=== PATIENT | female | born 1985 | race Caucasian/White ===

== ENCOUNTER 2022-11-27 09:32 | Outpatient (REF) | payer OTHER, SELFPAY ==
[2022-11-27 14:39] LABS: CT PCR NOT DETECTED (Not Detect.); NG PCR NOT DETECTED (Not Detect.)
[2022-11-28 12:54] LABS: BV Int Neg Control Negative (Negative); BV Int Pos Control Positive (Positive)
== END 2022-11-27 09:33 | disposition home or self-care (01) ==
LOC: HO.LAB 09:32
PROVIDERS: Visit Provider Advanced Practice Midwife
DX: Z01.419 Encounter for gynecological examination (general) (routine) without abnormal findings (principal); T83.32XA Displacement of intrauterine contraceptive device, initial encounter; N89.8 Other specified noninflammatory disorders of vagina; Z20.2 Contact with and (suspected) exposure to infections with a predominantly sexual mode of transmission
CPT/HCPCS: 0353U; 87480; 87510; 87660

== ENCOUNTER 2022-11-27 10:12 | Outpatient (REF) | payer OTHER, SELFPAY | END 2022-11-27 10:13 | disposition home or self-care (01) | LOC: HO.LNP 10:12 | PROVIDERS: Visit Provider Advanced Practice Midwife | DX: Z13.89 Encounter for screening for other disorder (principal) ==

== ENCOUNTER 2022-12-05 13:01 | Outpatient (REF) | payer OTHER, SELFPAY ==
[2022-12-05 15:07] LABS: Syphilis Screen Nonreactive (Nonreactive)
[2022-12-07 06:22] LABS: HBc Num1 0.09 S/CO (0.00-0.79); HIV AB/AG Nonreactive (Nonreactive); HIV Num 1 0.06 S/CO (0.00-0.99); Hepatitis B Core Antibody Nonreactive (Nonreactive); ~Hepatitis C Antibody Nonreactive (Nonreactive)
== END 2022-12-05 13:02 | disposition home or self-care (01) ==
LOC: HO.LAB 13:01
PROVIDERS: PCP Internal Medicine; Visit Provider Advanced Practice Midwife
DX: Z11.4 Encounter for screening for human immunodeficiency virus [HIV] (principal); Z20.2 Contact with and (suspected) exposure to infections with a predominantly sexual mode of transmission
CPT/HCPCS: 36415; 86704; 86780; 86803; 87389

== ENCOUNTER 2022-12-19 10:52 | Outpatient (REF) | payer OTHER, SELFPAY ==
--- NOTE | ~2022-12-19 | US_ITS ---
EXAMINATION: US PELVIS CLINICAL INFORMATION: IUD check. COMPARISON: None. TECHNIQUE: Transabdominal and transvaginal imaging of pelvis is performed for better visualization of pelvis organs. FINDINGS: The exam is limited due to body habitus. UTERUS: The uterus is retroverted, anteflexed and measures 9.1 x 4.0 x 5.9 cm. The double wall endometrial thickness is 0.3 cm. There is an IUD well located within the endometrial canal. There is minimal fluid in the endocervical canal. The uterus is smooth in contour and has normal myometrial echogenicity. No visible fibroid. ADNEXA: Both ovaries are visualized. There is normal color flow to the adnexa. There is no ovarian torsion. There is no pelvic ascites or fluid collection. Right ovary measures 3.2 x 2.4 x 2.8 cm and volume 11.2 mL. It appears unremarkable. Left ovary visualized transabdominally only and measures 3.1 x 2.0 x 1.9 cm and volume 6.2 mL. It appears unremarkable. There is fluid seen in the cervix. There is an exophytic cyst seen in left adnexa measuring 1.4 x 1.0 x 1.4 cm likely paraovarian cyst. There is no free fluid in cul-de-sac sac. US/US pelvic and transvaginal IMPRESSION: IUD is in a good position within the endometrial canal. There is minimal fluid in the cervix. There is left paraovarian/adnexal cyst.
== END 2022-12-19 10:53 | disposition home or self-care (01) ==
LOC: HO.US 10:52
PROVIDERS: Visit Provider Advanced Practice Midwife
DX: T83.32XA Displacement of intrauterine contraceptive device, initial encounter (principal)
CPT/HCPCS: 76830; 76856

== ENCOUNTER → 2023-01-04 15:11 | Outpatient (BNVA) | payer OTHER, SELFPAY | PROVIDERS: PCP Internal Medicine; Visit Provider Advanced Practice Midwife | DX: Z13.89 Encounter for screening for other disorder (principal) ==

== ENCOUNTER 2023-11-28 09:35 | Outpatient (REF) | payer OTHER, SELFPAY ==
--- NOTE | 2023-11-28 10:59 | MHC.AU.HA3 ---
Hearing Instrument Follow-Up- Binaural Date of Visit: 11/28/23 Follow-Up Summary: Nury is here for evaluation, reports she has hearing aids from [employer] that need to be retubed but she forgot to bring them today. She plans to return with them for maintenance. She is also interested in new hearing aids-- discussed rechargeable RICs as she is interested in something smaller than her current BTEs and wants rechargeable, Bluetooth, and a fun color if possible. Nury plans to contact [facility] to see if she's eligible. Recommendations: Recommendations: Return with hearing aids for maintenance. Diagnosis Code(s): Primary Diagnosis: H90.3 Bilateral Sensorineural Hearing Loss Signature: Provider: Alma Rosa Christian, CCC-A
== END 2023-11-28 09:36 | disposition home or self-care (01) ==
LOC: HO.SH 09:35
PROVIDERS: Visit Provider Nurse Practitioner Family
DX: Z01.118 Encounter for examination of ears and hearing with other abnormal findings (principal); H90.3 Sensorineural hearing loss, bilateral
CPT/HCPCS: 92557

== ENCOUNTER 2023-12-04 08:15 | Outpatient (AMB) | payer OTHER, SELFPAY ==
--- NOTE | 2023-12-04 08:16 | A.OFFVIS_ITS ---
Intake Vital Signs 12/04/23 08:17 Height 5 ft 3 in Weight 323 lb BMI 57.2 BP 136/80 Intake Visit Reasons: Annual Group Work Program Aide: Group Work Program Aide Present (Samantha) Allergies amoxicillin [AMOXICILLIN] Allergy (Unknown, Verified 12/04/23 08:17) NAUSEA & VOMITING HPI HPI Comments History of Present Illness Details She is a premenopausal woman presenting for annual examination. Doing well with no concerns. She tries to eat healthy, seeing a safety and skill based pay manager, and stays active with exercise. Doing well with the Mirena. Currently is not sexually active. She denies vaginal itching and irritation. STI screening offered; she accepts. Denies family history of ovarian or colon cancer. Last pap smear 2018, negative. [facility] Medical History (Updated 12/04/23 @ 08:41 by Brandi Simpson CNM) Asthma Vitamin D deficiency Joesph's disease Hypothyroid Surgical History Hx of cholecystectomy History of ankle surgery Family History Maternal Grandmother History of breast cancer Paternal Grandfather Brain cancer Social History Alcohol intake: current Alcohol intake frequency: a few times a month Patient Tobacco Use Status: Never used Tobacco Sexual orientation: Straight/Heterosexual Gender identity: Female Female Reproductive History Menstrual control method: progestin IUCD (Mirena 07/01) Total pregnancies: 0 Date of last pap smear: 12/10/18 (neg) Review of Systems Const All systems reviewed & are unremarkable except as noted in HPI and below Reports as per HPI Eyes Reports no additional complaints ENT Reports no additional complaints Card Reports no additional complaints Resp Reports no additional complaints GI Reports as per HPI and Reports no additional complaints Reports as per HPI Musc Reports no additional complaints Skin/Breast Reports as per HPI Neuro Reports no additional complaints Psych Reports no additional complaints Endo Reports no additional complaints Shivam/Lymph Reports no additional complaints Aller/Immun Reports no additional complaints Physical Exam Vital Signs: Last Vital Signs BP 136/80 12/04/23 08:17 BMI result Body Mass Index 57.2 Const General: cooperative, healthy appearing, no acute distress, well developed and alert Orientation/consciousness: patient oriented x3 HEENT Head: Yes normal to inspection Eyes General: appearance normal, both eyes and all related structures Neck Neck: Yes normal visual inspection Thyroid: Thyroid normal Chest Chest palpation & inspection: normal inspection of the chest and other (no puckering, dimpling, peau de orange, retraction, discharge, masses) Breast/axilla inspection: normal inspection of the breasts Breast/axilla palpation: normal palpation of the breasts Resp Effort & Inspection: normal respiratory effort GI Inspection: Yes normal to inspection and Yes obesity Palpation (GI): Soft to palpation Rectal Exam - Female: deferred Other: Pelvic organs not outlined well due to body habitus. General: Yes bladder normal to palpation External Female Exam: normal external appearance and normal appearance of the urethra Speculum Exam - Vagina: normal appearance of the vagina, normal palpation and normal vaginal discharge Speculum Exam - Cervix: normal appearance of the cervix, normal palpation and Other cervical findings present (IUD strings not found) Bimanual exam- vagina & uterus: normal bimanual exam, normal palpation, uterine size normal, bladder normal to palpation, normal palpation and non-tender Bimanual Exam- Adnexa, other: no masses Skin General skin exam: no rashes or lesions noted Rashes: no rashes Neuro General: patient oriented x3 Cognition (Neuro): normal cognition Extrem General: Yes normal to inspection Psych Attitude: cooperative Thought process: Normal thought process present Assessment & Plan Assessment & Plan (1) Encounter for well woman exam with routine gynecological exam: Code(s): Z01.419 - Encounter for gynecological examination (general) (routine) without abnormal findings (2) IUD strings lost: Code(s): T83.32XA - Displacement of intrauterine contraceptive device, initial encounter Plan Discussed: Current recommendations for pap smears per ASCCP guidelines. Breast awareness and periodic breast exams. Maintain a healthy lifestyle including a well balanced diet and routine exercise. Use condoms for STI prevention. Plan pelvic ultrasound for IUD surveillance-positioned check. May follow-up with a tele visit or phone call if all is confirmed in normal position, otherwise an in-person exam will be required. Mammogram after her 39th. All of her questions and concerns were addressed to the best of my ability. RTO in one year for annual delivery clerk examination. This note is constructed using voice recognition software. While every effort has been made to ensure accuracy, test eng errors may have been included. Orders: Orders MM tomosynthesis screening BI Today Z12.31 - Encounter for screening mammogram for malignant neoplasm of breast Syphilis Screen Today Z20.2 - Contact with and (suspected) exposure to infections with a predominantly sexual mode of transmission HIV Ab/Ag Today Z20.2 - Contact with and (suspected) exposure to infections with a predominantly sexual mode of transmission Hepatitis C Antibody Today Z20.2 - Contact with and (suspected) exposure to infections with a predominantly sexual mode of transmission Hepatitis B Core Antibody Today Z20.2 - Contact with and (suspected) exposure to infections with a predominantly sexual mode of transmission US pelvic and transvaginal Today T83.32XA - Displacement of intrauterine contraceptive device, initial encounter Coding Level of Care Code Est Pt Prev Care 18-39y(79349) Diagnoses Encounter for well woman exam with routine gynecological exam Z01.419 IUD strings lost T83.32XA
[2023-12-04 08:17] VITALS: BP 136/80; BMI 57.2
== END 2023-12-04 09:31 | disposition home or self-care (01) ==
LOC: HO.HWS 08:15
PROVIDERS: PCP Nurse Practitioner Family; Visit Provider Advanced Practice Midwife
DX: Z01.419 Encounter for gynecological examination (general) (routine) without abnormal findings (principal); T83.32XA Displacement of intrauterine contraceptive device, initial encounter
CPT/HCPCS: 99395

== ENCOUNTER 2023-12-04 08:15 | Outpatient (REF) | payer OTHER, SELFPAY ==
[2023-12-04 10:56] LABS: HBc Num1 0.08 S/CO (0.00-0.79); HIV AB/AG Nonreactive (Nonreactive); HIV Num 1 0.05 S/CO (0.00-0.99); Hepatitis B Core Antibody Nonreactive (Nonreactive); ~HepC Num1 0.05 S/CO (0.00-0.79); ~Hepatitis C Antibody Nonreactive (Nonreactive)
[2023-12-04 10:57] LABS: Syphilis Screen Nonreactive (Nonreactive)
[2023-12-04 12:21] LABS: CT PCR NOT DETECTED (Not Detect.); NG PCR NOT DETECTED (Not Detect.)
[2023-12-05 13:42] LABS: BV Int Neg Control Negative (Negative); BV Int Pos Control Positive (Positive)
== END 2023-12-04 08:16 | disposition home or self-care (01) ==
LOC: HO.LAB 08:15
PROVIDERS: PCP Nurse Practitioner Family; Visit Provider Advanced Practice Midwife
DX: Z01.419 Encounter for gynecological examination (general) (routine) without abnormal findings (principal); Z11.4 Encounter for screening for human immunodeficiency virus [HIV]; T83.32XA Displacement of intrauterine contraceptive device, initial encounter; Z20.2 Contact with and (suspected) exposure to infections with a predominantly sexual mode of transmission; N89.8 Other specified noninflammatory disorders of vagina
CPT/HCPCS: 0353U; 86704; 86780; 86803; 87389; 87480; 87510; 87660

== ENCOUNTER 2023-12-04 08:53 | Outpatient (REF) | payer OTHER, SELFPAY ==
[2023-12-10 05:04] LABS: HPV 16 RNA NOT DETECTED (NOT DETECTED); HPV mRNA E6/E7 rflx Detected (Not Detected)
== END 2023-12-04 08:54 | disposition home or self-care (01) ==
LOC: HO.LNP 08:53
PROVIDERS: Visit Provider Advanced Practice Midwife
DX: Z01.419 Encounter for gynecological examination (general) (routine) without abnormal findings (principal); Z11.51 Encounter for screening for human papillomavirus (HPV)
CPT/HCPCS: 87624; 87625; 88142

== ENCOUNTER 2023-12-23 16:06 | Outpatient (REF) | payer OTHER, SELFPAY ==
--- NOTE | ~2023-12-23 | US_ITS ---
EXAMINATION: US PELVIS CLINICAL INFORMATION: Unable to palpate IUD string. Check IUD placement. Unknown last menstrual period due to IUD. Patient denies pelvic pain. COMPARISON: 12/19/2022 pelvic ultrasound. TECHNIQUE: Transabdominal and transvaginal ultrasound images were obtained of the pelvis. Limited visualization due to bowel gas and body habitus. FINDINGS: The uterus measures 8.4 x 3.8 x 4.9 cm. No discrete fibroids. IUD located within the endometrial cavity, though visualization to assess for positioning is limited due to body habitus and bowel gas. Limited visualization due to bowel gas and body habitus. Bilateral ovaries seen only on limited transabdominal ultrasound images and are grossly unremarkable. Right ovary measures 3.0 x 3.1 x 3.0 cm, volume 14.6 mL. Left ovary measures 2.5 x 3.6 x 2.9 cm, volume 13.7 mL. No significant free fluid. US/US pelvic and transvaginal IMPRESSION: 1. IUD located within the endometrial cavity, though visualization to assess for positioning is substantially limited due to body habitus and bowel gas. 2. No discrete fibroids. 3. Bilateral ovaries seen only on limited transabdominal ultrasound images and are grossly unremarkable. Previously identified left paraovarian/adnexal 1.4 cm cyst is not visualized today, although visualization is substantially limited due to bowel gas and body habitus.
== END 2023-12-23 16:07 | disposition home or self-care (01) ==
LOC: HO.US 16:06
PROVIDERS: PCP Nurse Practitioner Family; Visit Provider Advanced Practice Midwife
DX: T83.32XA Displacement of intrauterine contraceptive device, initial encounter (principal)
CPT/HCPCS: 76830; 76856

== ENCOUNTER 2024-01-07 12:46 | Outpatient (AMB) | payer OTHER, SELFPAY ==
--- NOTE | 2024-01-07 12:47 | A.OFFVIS_ITS ---
Intake Intake Visit Reasons: TV Ultrasound Results Intake Note: cell # [phone] Client Care Representative: Client Care Representative Present Allergies amoxicillin [AMOXICILLIN] Allergy (Unknown, Verified 01/07/24 12:47) NAUSEA & VOMITING Is last menstrual period known: Yes HPI HPI Comments History of Present Illness Details [facility] visit 12:53-12:56. Phone call due to Covid 19 Pandemic. I spent minutes speaking with the patient on the phone plus an additional 5 minutes reviewing the chart and 5 minutes updating the medical record for a total of 13minutes. Patient presents via phone to discuss: IUD results due to previous visit with missing IUD strings. She denies any pelvic pain or other concerns. [facility] Medical History (Updated 12/04/23 @ 08:41 by Brandi Simpson CNM) Asthma Vitamin D deficiency Joesph's disease Hypothyroid Surgical History Hx of cholecystectomy History of ankle surgery Family History Maternal Grandmother History of breast cancer Paternal Grandfather Brain cancer Social History Alcohol intake: current Alcohol intake frequency: a few times a month Patient Tobacco Use Status: Never used Tobacco Sexual orientation: Straight/Heterosexual Gender identity: Female Female Reproductive History Menstrual control method: progestin IUCD (Missing IUD strings, ultrasound confirmation IUD in proper position 12/2023) Review of Systems Const All systems reviewed & are unremarkable except as noted in HPI and below Endo Reports no additional complaints Physical Exam Const General: cooperative, healthy appearing and no acute distress Psych Appearance: well kempt Attitude: cooperative Thought process: Normal thought process present Results Reviewed Results Reviewed: [address] [address] Ultrasound Report Signed Patient: Nury Olivera MR#: [id number] : 1985 Acct:[id number] Age/Sex: 38 / F ADM Date: 12/23/23 Loc: HO.US Attending Dr: Brandi Simpson CNM Ordering Physician: Brandi Simpson CNM Date of Service: 12/23/23 Procedure(s): US pelvic and transvaginal Accession Number(s): [id number] cc: Traci Menendez DIRECTOR OF REVENUE; Brandi Simpson CNM~ EXAMINATION: US PELVIS CLINICAL INFORMATION: Unable to palpate IUD string. Check IUD placement. Unknown last menstrual period due to IUD. Patient denies pelvic pain. COMPARISON: 12/19/2022 pelvic ultrasound. TECHNIQUE: Transabdominal and transvaginal ultrasound images were obtained of the pelvis. Limited visualization due to bowel gas and body habitus. FINDINGS: The uterus measures 8.4 x 3.8 x 4.9 cm. No discrete fibroids. IUD located within the endometrial cavity, though visualization to assess for positioning is limited due to body habitus and bowel gas. Limited visualization due to bowel gas and body habitus. Bilateral ovaries seen only on limited transabdominal ultrasound images and are grossly unremarkable. Right ovary measures 3.0 x 3.1 x 3.0 cm, volume 14.6 mL. Left ovary measures 2.5 x 3.6 x 2.9 cm, volume 13.7 mL. No significant free fluid. US/US pelvic and transvaginal IMPRESSION: 1. IUD located within the endometrial cavity, though visualization to assess for positioning is substantially limited due to body habitus and bowel gas. 2. No discrete fibroids. 3. Bilateral ovaries seen only on limited transabdominal ultrasound images and are grossly unremarkable. Previously identified left paraovarian/adnexal 1.4 cm cyst is not visualized today, although visualization is substantially limited due to bowel gas and body habitus. Dictated By: Tamera Funk MD Signed By: <Electronically signed by Tamera Funk MD in OV> 12/24/23 0710 DD/ 1700 TD/TT: Radiology Manager: Assessment & Plan Assessment & Plan (1) IUD surveillance: Code(s): Z30.431 - Encounter for routine checking of intrauterine contraceptive device Plan Discussed: Findings of IUD presence in the endometrial canal previous cyst resolve. All of her questions and concerns were addressed to the best of my ability and shared decision making. She is agreeable to the plan of care. Return to the office for annual yearly, or if there is any pelvic pain unscheduled bleeding or other electric sign wirer concerns. This note is constructed using voice recognition software. While every effort has been made to ensure accuracy, inspector technician errors may have been included. Telehealth Telehealth Location of provider rendering services: practice address Location of patient: address on file Patient Identification confirmed using: Name, : Yes Telehealth method: video Patient verbally consented to treatment: Yes Patient verbally consented to billing insurance company: Yes Patient informed of any privacy concerns related to visit: Yes Coding Level of Care Code Tele Est Pt Level 2 (16445) Diagnoses IUD surveillance Z30.431
== END 2024-01-07 13:23 | disposition home or self-care (01) ==
LOC: HO.HWS 12:47
PROVIDERS: PCP Nurse Practitioner Family; Visit Provider Advanced Practice Midwife
DX: Z30.431 Encounter for routine checking of intrauterine contraceptive device (principal)
CPT/HCPCS: 99212

== ENCOUNTER → 2024-01-07 12:46 | Outpatient (BNVA) | payer OTHER, SELFPAY | PROVIDERS: PCP Nurse Practitioner Family; Visit Provider Advanced Practice Midwife ==

== ENCOUNTER 2024-02-27 08:56 | Outpatient (REF) | payer OTHER, SELFPAY ==
--- NOTE | ~2024-02-27 | MM_ITS ---
EXAMINATION: MM SCREENING DIGITAL BREAST TOMOSYNTHESIS, BILATERAL CLINICAL INFORMATION: Screening. Asymptomatic. COMPARISON: Mammography: This is a baseline study. TECHNIQUE: Digital breast tomosynthesis is performed in both the craniocaudal and mediolateral oblique views along with computer-aided detection (CAD). Synthesized 2D images are generated from the tomosynthesis. FINDINGS: The breasts are almost entirely fatty (ACR BI-RADS breast composition Category a). There are no significant masses, abnormal calcifications, or other abnormalities. MM/MM tomosynthesis screening BI IMPRESSION: No mammographic evidence of malignancy. ASSESSMENT: BI-RADS BI-RADS 1 - Negative RECOMMENDATION: Routine annual mammography screening. 1 year F/U This examination should not preclude the clinical evaluation of a suspicious palpable abnormality. This patient's information was entered into a reminder system with a target due date for their next mammogram.
== END 2024-02-27 08:57 | disposition home or self-care (01) ==
LOC: HO.MAMMO 08:56
PROVIDERS: PCP Nurse Practitioner Family; Visit Provider Advanced Practice Midwife
DX: Z12.31 Encounter for screening mammogram for malignant neoplasm of breast (principal)
CPT/HCPCS: 77063; 77067

== ENCOUNTER → 2024-02-27 09:15 | Outpatient (BNV) | payer OTHER, SELFPAY | PROVIDERS: PCP Nurse Practitioner Family; Visit Provider Radiology Diagnostic Radiology | DX: Z12.31 Encounter for screening mammogram for malignant neoplasm of breast (principal) | CPT/HCPCS: 77063; 77067 ==

== ENCOUNTER 2024-06-02 21:07 | Emergency (ER) | payer OTHER, SELFPAY ==
[2024-06-02 21:12] VITALS: BP 154/95; PULSE 75; RESP 18; TEMP 36.7; O2SAT 99; BMI 56.7
[2024-06-02 21:37] LABS: IDNOW Serial# 08D9AD1C; Strep A Nucleic Acid Negative (Negative)
[2024-06-02 22:13] LABS: Influenza A PCR NEGATIVE (Negative); Influenza B PCR NEGATIVE (Negative); Resp Syncy Virus RNA Qual PCR NEGATIVE (Negative); SARS COV2 PCR INHOUSE NEGATIVE (Negative)
--- NOTE | 2024-06-02 23:19 | ED_ITS ---
HPI - URI/Sore Throat General Chief Complaint: Upper Respiratory Symptoms Stated Complaint: ?Dental infection Time Seen by Provider: 06/02/24 22:57 Source: patient Mode of arrival: ambulatory Limitations: no limitations History of Present Illness ED Provider: Dr. Felicita Fierro HPI Narrative: Patient comes to the emergency room complaining of sinus pressure, headache, nasal congestion, right ear pain. Patient denies fever chills. Patient denies any recent swimming. No dental pain Related Data Home Medications ?Medication ?Instructions ?Recorded ?Confirmed albuterol sulfate 90 mcg/actuation 2 puff inhalation Q4H PRN dyspnea 11/27/22 aerosol inhaler cholecalciferol (vitamin D3) 25 25 mcg PO DAILY 11/27/22 mcg (1,000 unit) capsule citalopram 10 mg tablet 10 mg PO DAILY 11/27/22 levonorgestrel 21 mcg/24 hr (up to intrauterine 11/27/22 8 years) 52 mg intrauterine device (Mirena) levothyroxine 175 mcg tablet 175 mcg PO QAM 11/27/22 lorazepam 0.5 mg tablet 0.5 mg PO PRN anxiety 11/27/22 metformin 500 mg tablet 500 mg PO BID 11/27/22 selenium 200 mcg tablet 200 mcg PO DAILY 11/27/22 methylphenidate HCl 27 mg 27 mg PO QAM 12/04/23 tablet,extended release 24 hr semaglutide 1 mg/dose (4 mg/3 mL) mg subcut 12/04/23 subcutaneous pen injector (Ozempic) Previous Rx's ?Medication ?Instructions ?Recorded cefuroxime axetil 250 mg tablet 250 mg PO BID #20 tabs 06/02/24 ibuprofen 600 mg tablet 600 mg PO Q8H PRN fever or pain 06/02/24 #20 tabs Allergies Allergy/AdvReac Type Severity Reaction Status Date / Time amoxicillin [AMOXICILLIN] Allergy Unknown NAUSEA & Verified 06/02/24 21:13 VOMITING Review of Systems Review of Systems: Constitutional : No Weight loss, No Fever, No Chills, No Night Sweats, No Fatigue, No Malaise ENT/Mouth : Complaining of sinus pressure, nasal congestion, discomfort with swallowing, bilateral ear pain board worse under Eyes: No Eye Pain, No Swelling, No Redness, No Foreign Body, No Discharge, No Vision Changes Cardiovascular : No Chest Pain, No SOB, No Dyspnea on Exertion, No Orthopnea, No Edema, No Palpitations Respiratory : No Cough, No Sputum, No Wheezing, No Smoke Exposure, No Dyspnea Gastrointestinal : No Nausea, No Vomiting, No Diarrhea, No Constipation, No abdominal Pain, No Hematochezia, No Melena Genitourinary : no irregular bleeding, No Dysuria, No Urinary Frequency, No Hematuria, No Urinary Incontinence, No Urgency, No Flank Pain, No Urinary Flow Changes, No Hesitancy Musculoskeletal : No joint pain, No Myalgias, No Joint Swelling Skin : No Skin Lesions, No rash Neuro : No Weakness, No Numbness, No Paresthesias, No Loss of Consciousness, No Dizziness, No Headache Psych : No Anxiety/Panic, No Depression, No SI/HI/AH/VH, No Social Issues, Heme/Lymph: No Bruising, No Bleeding,No Lymphadenopathy Endocrine : No Polyuria, No Polydipsia, No Temperature Intolerance PMFSH Past Medical History Medical History Asthma Vitamin D deficiency Joesph's disease Hypothyroid Surgical History Hx of cholecystectomy History of ankle surgery Family History Family History Maternal Grandmother History of breast cancer Paternal Grandfather Brain cancer Social History Social History Alcohol intake: current Alcohol intake frequency: a few times a month Patient Tobacco Use Status: Never used Tobacco Smoked in Last 30 Days: No Advance Directives: No Advance Directives Information Provided: No Do you have a plan to hurt others: No Plan Patient : No Sexual orientation: Straight/Heterosexual Gender identity: Female Physical Exam Vital Signs: Vital Signs: Last Vital Signs Temp 98.1 F 06/02/24 21:12 Pulse 75 06/02/24 21:12 Resp 18 06/02/24 21:12 BP 154/95 H 06/02/24 21:12 Pulse Ox 99 06/02/24 21:12 O2 Del Method Room Air 06/02/24 21:12 BMI result Body Mass Index 56.7 Const: Other: Appearance: Alert. Oriented X3. No acute distress. Eyes: Pupils equal, round and reactive to light. ENT: Pharynx normal. Right tympanic membrane erythematous, ear canal mildly swollen Neck: Normal inspection. Neck supple. No lymph nodes noted. No crepitus CVS: Normal heart rate and rhythm. Pulses normal. Normal S1 and S2 Respiratory: No respiratory distress. Breath sounds normal. No Wheezing. No rales Abdomen: Soft and nontender. No rigidity. No distention. Skin: Skin warm and dry. Normal skin color. Normal skin turgor. Extremities: No lower extremity edema. No Lacerations. No Rash Neuro: Oriented X 3. No motor deficit. No sensory deficit. Moving all extremities. No slurred speech. CN 2 through 12 grossly intact Psych: calm, cooperative, normal affect Medical Decision Making Medical Decision Making [facility] Narrative: My interpretation of labs: Negative for influenza, RSV and strep -however, patient does have otitis media Differential Diagnosis Differential Diagnoses: The differential diagnosis associated with the presentation includes (Viral URI, strep, COVID, otitis) Lab Data [facility] Lab Attestation statement: I reviewed the patient's lab results. Labs: Lab Results 06/02/24 Range/Units 21:22 Influenza Type A (PCR) NEGATIVE (Negative) Influenza Type B (PCR) NEGATIVE (Negative) RSV RNA Qual (PCR) NEGATIVE (Negative) SARS-CoV-2 RNA (RT-PCR) NEGATIVE (Negative) S. pyogenes GrpA SARAH Negative (Negative) Discharge Plan Discharge Clinical Impression: Otitis media Patient Disposition: Home, Self-Care Instructions: Ear Infection (ED) Additional Instructions: Please follow-up with your primary care physician tomorrow. If you have any worsening or new symptoms, please return to the emergency room or call 911 Prescriptions: New cefuroxime axetil 250 mg tablet 250 mg PO BID Qty: 20 0RF ibuprofen 600 mg tablet 600 mg PO Q8H PRN (Reason: fever or pain) Qty: 20 0RF No Action citalopram 10 mg tablet 10 mg PO DAILY levothyroxine 175 mcg tablet 175 mcg PO QAM albuterol sulfate 90 mcg/actuation HFA aerosol inhaler 2 puff inhalation Q4H PRN (Reason: dyspnea) metformin 500 mg tablet 500 mg PO BID lorazepam 0.5 mg tablet 0.5 mg PO PRN (Reason: anxiety) selenium 200 mcg tablet 200 mcg PO DAILY cholecalciferol (vitamin D3) 25 mcg (1,000 unit) capsule 25 mcg PO DAILY Mirena 20 mcg/24 hours (8 yrs) 52 mg intrauterine device intrauterine methylphenidate HCl 27 mg tablet extended release 24hr 27 mg PO QAM Ozempic 1 mg/dose (4 mg/3 mL) pen injector subcut Print Language: Icelandic
[2024-06-02 23:41] VITALS: BP 165/112; PULSE 71; RESP 20; TEMP 36.8; O2SAT 96
[2024-06-02 23:59] VITALS: BP 165/115; PULSE 71; RESP 20; TEMP 36.8; O2SAT 96
== END 2024-06-03 00:01 | disposition home or self-care (01) ==
PROVIDERS: Emergency Provider Emergency Medicine; PCP Nurse Practitioner Family
DX: H66.91 Otitis media, unspecified, right ear (principal); H92.01 Otalgia, right ear; Z03.818 Encounter for observation for suspected exposure to other biological agents ruled out; J45.909 Unspecified asthma, uncomplicated
CPT/HCPCS: 0241U; 87651; 99283; 99284

== ENCOUNTER 2024-06-26 12:26 | Outpatient (REF) | payer OTHER, SELFPAY | END 2024-06-26 12:27 | disposition home or self-care (01) | LOC: HO.SH 12:26 | PROVIDERS: Visit Provider Nurse Practitioner Family | DX: Z01.118 Encounter for examination of ears and hearing with other abnormal findings (principal); H90.3 Sensorineural hearing loss, bilateral | CPT/HCPCS: 92552; 92556; 92567 ==

== ENCOUNTER 2024-06-30 13:02 | Outpatient (REF) | payer SELFPAY | END 2024-06-30 13:03 | disposition home or self-care (01) | LOC: HO.HAP 13:02 | PROVIDERS: Visit Provider Nurse Practitioner Family | DX: Z46.1 Encounter for fitting and adjustment of hearing aid (principal); H90.3 Sensorineural hearing loss, bilateral | CPT/HCPCS: 92593 ==

== ENCOUNTER 2024-11-17 13:21 | Outpatient (REF) | payer OTHER, SELFPAY ==
[2024-11-18 03:39] LABS: CT PCR NOT DETECTED (Not Detect.); NG PCR NOT DETECTED (Not Detect.)
[2024-11-18 11:31] LABS: Bacterial Vaginosis PCR NEGATIVE (Negative); Candida Group PCR DETECTED (Not Detect); Candida glab krusei PCR NOT DETECTED (Not Detect); Trichomonas vaginalis PCR NOT DETECTED (Not Detect)
== END 2024-11-17 13:22 | disposition home or self-care (01) ==
LOC: HO.LNP 13:21
PROVIDERS: PCP Nurse Practitioner Family; Visit Provider Advanced Practice Midwife
DX: N90.89 Other specified noninflammatory disorders of vulva and perineum (principal)
CPT/HCPCS: 81515; 87491; 87591

== ENCOUNTER 2024-11-17 13:21 | Outpatient (AMB) | payer OTHER, SELFPAY ==
--- NOTE | 2024-11-17 13:24 | MHC.OFFVIS ---
Intake Visit Reasons: vag irritation Allergies amoxicillin [AMOXICILLIN] Allergy (Unknown, Verified 11/17/24 13:25) NAUSEA & VOMITING HPI Comments Details: Patient is here today with concerns that she sought external irritation and itching on and off for some time. Had a prescription from her primary care for external dryness which worked well in the past. Currently not sexually active, desires to have STD screening. She denies any pelvic pain or urinary symptoms. [facility] Medical History Asthma Vitamin D deficiency Joesph's disease Hypothyroid Surgical History Hx of cholecystectomy History of ankle surgery Family History Maternal Grandmother History of breast cancer Paternal Grandfather Brain cancer Social History Alcohol intake: current Alcohol intake frequency: a few times a month Patient Tobacco Use Status: Never used Tobacco Sexual orientation: Straight/Heterosexual Gender identity: Female Review of Systems Const All systems reviewed & are unremarkable except as noted in HPI and below Physical Exam Const General: cooperative, healthy appearing and no acute distress Orientation/consciousness: patient oriented x3 GI Inspection: Yes normal to inspection and Yes obesity Palpation (GI): Soft to palpation and Other GI palpation findings present (Nontender) Rectal Exam - Female: visual inspection normal Other: External: Erythema slight edema of the labia. Limited exam due to patient tensing and inability to insert speculum deeply due to vaginal anatomy w/ deep pelvis General: Yes bladder normal to palpation External Female Exam: normal appearance of the urethra Speculum Exam - Vagina: normal appearance of the vagina, normal palpation and abnormal vaginal discharge (White and clumpy) Speculum Exam - Cervix: normal appearance of the cervix and normal palpation Bimanual exam- vagina & uterus: normal bimanual exam, normal palpation, uterine size normal, bladder normal to palpation, normal palpation, uterine shape normal and non-tender Bimanual Exam- Adnexa, other: normal adnexae Neuro General: patient oriented x3 Assessment & Plan Assessment & Plan (1) Vulvar irritation: Code(s): N90.89 - Other specified noninflammatory disorders of vulva and perineum Plan Discussed: Treat for topical discomfort until BV panel is back for confirmation, STD screening culture completed. We will consider a topical insert if needed due to the contraindications of Diflucan use with her Citalopram medication. Annual exam as scheduled the end of the month. The patient expressed understanding and agreement with the plan of care. All of her questions and concerns were addressed to the best of my ability. This note is constructed using voice recognition software. While every effort has been made to ensure accuracy, innersole fitter errors may have been included. Medications: New clotrimazole-betamethasone 1-0.05 % 1 appl topical BID 7 days 45 grams 0RF itching Coding Level of Care Code Est Pt Level 3 (56769) Diagnoses Vulvar irritation N90.89
== END 2024-11-17 14:20 | disposition home or self-care (01) ==
PROVIDERS: PCP Nurse Practitioner Family; Visit Provider Advanced Practice Midwife
DX: N90.89 Other specified noninflammatory disorders of vulva and perineum (principal)
CPT/HCPCS: 99213

== ENCOUNTER 2024-12-08 08:21 | Outpatient (REF) | payer OTHER, SELFPAY ==
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
--- OUTSIDE RECORDS SUMMARY | 2024-12-08 09:30 | XMS_ITS | Encounter Summary ---
Author Organization [facility] Address [address] [place] [address] Care Team Providers Care Artificial Inseminator Name Role Phone Shiela Martinez MD Primary Care Provider Unava ilable Tracy Sutton DO Primary Care Pro vider Unavailable Cayetano Camacho DO Primary Care Provider Tanesha Traci Urrutia DNP Primary Care Provider Yakelin presley Encounter Details Date Type Department Care Team Description 10/23/2016 Release of Information Medical Records [address] [place] [id number] Abstract, Provider Social History Tobacco Use Types Packs/Day Years Used Date Smoking Tobacco: Never Smokeless Tobacco: Never Alcohol Use Standard Drinks/Week Comments Yes 0 (1 standard drink = 0.6 oz pure alcohol) socially, rare, 1-2 drinks on occasion Sex Assigned at Date Recorded Not on file Job Start Date Occupation Industry Not on file Not on file Not on file documented as of this encounter Plan of Treatment Not on file documented as of this encounter Visit Diagnoses Not on filedocumented in this encounter Care Teams Artificial Inseminator Relationship Specialty Start Date End Date Shiela Martinez MD PCP - General 02/26/11 12/14/18 Tracy Sutton DO PCP - General Internal Medicine 12/15/18 07/06/21 Cayetano Camacho DO PCP - General Internal Medicine 07/07/21 2 Traci Menendez, DNP PCP - General Nurse Practioner Adult Health 12/05/21 documented as of this encounter
--- OUTSIDE RECORDS SUMMARY | 2024-12-08 09:30 | XMS_ITS | Encounter Summary ---
Author Organization [facility] Address [address] [place] [address] Care Team Providers Care Medical Reviewer Name Role Phone Tracy Sutton DO Primary Care Pro vider Unavailable Cayetano Camacho DO Primary Care Provider Traci Lin DNP Primary Care Provider Yakelin presley Encounter Details Date Type Department Care Team Description 08/05/2020 Orders Only Adult Medicine [address] [address] Tracy Sutton DO Acquired hypothyroidism (Primary Dx) Social History Tobacco Use Types Packs/Day Years Used Date Smoking Tobacco: Never Smokeless Tobacco: Never Alcohol Use Standard Drinks/Week Comments Yes 0 (1 standard drink = 0.6 oz pure alcohol) socially, rare, 1-2 drinks on occasion Sex Assigned at Date Recorded Not on file Job Start Date Occupation Industry Not on file Not on file Not on file COVID-19 Exposure Response Date Recorded In the last month, have you been in contact with someone who was confirmed or suspected to have Coronavirus / COVID-19? No / Unsure 08/04/2020 4:52 PM EDT documented as of this encounter Plan of Treatment Scheduled Orders Name Type Priority Associated Diagnoses Orde r Schedule TSH Lab Routine Acquired hypothyroidism Expected: 08/05/2020, Expires: 08/05/2021 documented as of this encounter Visit Diagnoses Diagnosis Acquired hypothyroidism- Primary Unspecified hypothyroidism documented in this encounter Care Teams Medical Reviewer Relationship Specialty Start Date End Date Tracy Sutton, PCP - General Internal Medicine 12/15/18 07/06/21 Cayetano Camacho DO PCP - General Internal Medicine 07/07/21 2 Traci Menendez, JOANIE PCP - General Nurse Practioner [facility] 12/05/21 documented as of this encounter
--- OUTSIDE RECORDS SUMMARY | 2024-12-08 09:30 | XMS_ITS | Encounter Summary ---
Author Organization [facility] Address [address] [place] [address] Care Team Providers Care Log Turner Name Role Phone Tracy Sutton DO Primary Care Pro vider Unavailable Cayetano Camacho DO Primary Care Provider Traci Lin DNP Primary Care Provider Yakelin presley Encounter Details Date Type Department Care Team Description 03/06/2021 Pediatric Occupational Therapist Report Medical Records [address] [place] [id number] Thu Renteria PA-C Social History Tobacco Use Types Packs/Day Years [...] on filedocumented in this encounter Care Teams Log Turner Relationship Specialty Start Date End Date Tracy Sutton DO PCP - General Internal Medicine 12/15/18 07/06/21 Cayetano Camacho DO PCP - General Internal Medicine 07/07/21 2 Traci Menendez DNP PCP - General Nurse Practioner Adult Health 12/05/21 documented as of this encounter
--- OUTSIDE RECORDS SUMMARY | 2024-12-08 09:30 | XMS_ITS | Clinical Summary ---
Author Organization [facility] Address [address] [place] [address] Care Team Providers Care Barrel Bander Name Role Phone Traci Menendez DNP Primary Care Provider Yakelin presley Allergies Active Allergy Reactions Severity Noted Date Comments Amoxicillin Trihydrate Nausea and Vomiting 01/09 Medications Medication Sig Dispensed Refills Start Date End Date Status [facility] VITAMIN D3 1000 UNITS Cap TAKE 1 CAP BY MOUTH DAILY. 30 Cap 5 11/07/2016 Active ibuprofen (ADVIL,MOTRIN) 600 MG tablet Take 1 Tab by mouth every 8 hours as needed for Pain. 60 Tab 0 09/24/2017 Active fexofenadine 180 MG tablet Take 1 Tab by mouth daily. 30 Tab 2 03/03/2019 Active PROAIR HFA 108 (90 Base) MCG/ACT Aero Soln Inhale 2 Puffs into the lungs every 4 hours as needed for Cough or Wheezing. 1 Inhaler 1 09/02/2019 Active fluticasone (FLONASE) 50 MCG/ACT nasal spray 2 Sprays by Nasal route daily for 30 days. 1 Bottle 1 09/29/2020 Active levothyroxine 100 MCG tablet Take 1 tab twice a week on Saturday and Saturday 24 tablet 0 2021 Active lorazepam (Ativan) 0.5 MG tablet 1/2-1 po qd prn anxiety or insomnia 30 tablet 0 04/19/2021 Active trazodone (DESYREL) 50 MG tablet 1 po qhs prn insomnia 30 tablet 2 04/19/2021 Active levothyroxine (SYNTHROID, LEVOTHROID) 200 MCG tablet TAKE 1 TABLET BY MOUTH EVERY DAY 30 tablet 5 05/22/2021 Active levonorgestrel (MIRENA) 20 MCG/24HR IUDIndications:Encou nter for insertion of intrauterine contraceptive device 1 Each by Intrauterine route Once. 1 Each 0 07/10/2021 Active Active Problems Problem Noted Date Irritable bowel syndrome with diarrhea 0 03/27/2016 Adjustment disorder 11/18/2014 Asthma, mild intermittent 03/17/2014 Overview: See note 02/2013 Vitamin D deficiency 02/27/2012 Migraine 06/21/2011 Allergic rhinitis 07/25/2010 Dysmenorrhea 04/20/2010 PMS (premenstrual syndrome) 04/20/2010 Morbid obesity with BMI of 50.0-59.9, ad ult 04/22/2008 Hearing loss 01/19/2006 Overview: From childhood. 15% hearing each ear; Speech therapy as a child. Baseline nasal speech Hypothyroidism 01/19/2006 Resolved Problems Problem Noted Date Resolved Date Sebaceous cyst 08/07/2013 11/27/2018 Skin lesion of left foot 04/05/2011 011 Menorrhagia 04/20/2010 06/22/2011 Immunizations Name Administration Dates Next Due COVID-19 (Pfizer) 01/05/2021,12/15/2020 Flu Vaccine 3 Yrs> Im 08/26/2020 HPV (Gardasil) 01/22/2008,09/24/2007,07/18/2007 01/23/2008 Hepatitis B > 19yrs 07/27/2009,02/23/2009,2008 Influenza (> 6 Months) 08/26/2020,2016,09/22/2015,09/11,08/17/2011,07/25/2010,08/12/20 09 Influenza (>6 Months) Split Preservative Free 09/07/2013 Influenza Vaccine-preservati ve Free-quadrivalent 4 Years 09/02/2019 Yclevtj-Pavtt-Xkjkrstr + 01/31/2015 Yqisp-Msqfq-Zlbhgwpu + 01/31/2015 PPD-RBMG 02/11/2019 Pneumoccoccal(Adult) Polysac charide PPSV23 09/20/2014 Fpzmeeb-Gddca-Jsycwmjc + 01/31/2015 TD (STATE SUPPLIED FOR ADULT S AND CHILDREN) 03/03/2019 Tdap 04/28/2008 Family History Medical History Relation Name Comments Cholesterol Level Father Diabetes Father off med after l osing weight from gastric bypass brain tumor Maternal Grandfather d, dx in his 50's Cholesterol Level Mother Diabetes Mother Cancer of the Breast Mother's side great- aunt, over 40 CA Colon Negative Hx CA Ovarian Negative Hx Relation Name Status Comments Father Maternal Grandfather Mother Mother's side Social History Tobacco Use Types Packs/Day Years Used Date Smoking Tobacco: Never Smokeless Tobacco: Never Alcohol Use Standard Drinks/Week Comments Yes 0 (1 standard drink = 0.6 oz pure alcohol) socially, rare, 1-2 drinks on occasion Sex Assigned at Date Recorded Not on file Job Start Date Occupation Industry Not on file Not on file Not on file Last Filed Vital Signs Vital Sign Reading Time Taken Comments Blood Pressure 124/60 12/05/2021 10:20 AM EST Pulse 71 12/05/2021 10:20 AM EST Temperature 36.8 ??C (98.3 ??F) 04/27/2021 3:10 PM ED T Respiratory Rate 18 09/01/2021 1:22 PM EDT Oxygen Saturation 96% 04/27/2021 3:10 PM EDT Inhaled Oxygen Concentration - - Weight 132.7 kg (292 lb 9.6 oz) 022 10:20 AM EST Height 160 cm (5' 3 ) 04/27/2021 3:10 PM EDT Body Mass Index 51.83 04/27/2021 3:10 PM EDT Plan of Treatment Health Maintenance Due Date Last Done Comments CERVICAL CANCER SCREENING 12/10/20232018, 09/17/2016, 09/07/2013, Additional history exists BASELINE HEALTH EXAM 40-64 02/24/202405/04, 04/27/2021, 03/04/2019, Additional history exists MAMMOGRAM 2024 Covid-19 Vaccine (3 - 2022-2 4 season) 2024 01/05/2021, 12/15/2020 INFLUENZA (#1) 2024 08/26/2020, 08/11, 09/02/2019, Additional history exists BMI CHECK/ADVISE 11/11/2024 09/01/2021, , 04/27/2021 (Completed), Additional history exists CHOLESTEROL SCREENING 05/04/2026 05/04/2021 , 05/11/2020, 03/04/2019, Additional history exists DTAP/TDAP/TD (3 - Td or Tdap) 03/03/2029 03/03/2019, 04/28/2008 PNEUMOCOCCAL VACCINE FOR HIG H RISK PATIENTS (#2) 02/23/2049 09/20/2014 Care Teams Barrel Bander Relationship Specialty Start Date End Date Traci Menendez, DNP PCP - General Nurse Practioner Adult Health 12/05/21
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
--- OUTSIDE RECORDS SUMMARY | 2024-12-08 09:30 | XMS_ITS | Encounter Summary ---
Author Organization [facility] Address [address] [place] [address] Care Team Providers Care Heel Cementer Name Role Phone Shiela Martinez MD Primary Care Provider Unava ilTracy Georges DO Primary Care Pro vider Unavailable Cayetano Camacho DO Primary Care Provider Tanesha Traci Urrutia DNP Primary Care Provider Yakelin presley Reason for Visit * Reason Comments E-prescribe Rx Request Encounter Details Date Type Department Care Team Description 03/15/2016 Refill Adult Medicine [address] [address] Shiela Martinez MD E-prescribe Rx Request Social History Tobacco Use [...] encounter Miscellaneous Notes * Telephone Encounter - Shelley Dunlap M.A. - 03/15/2016 2:30 PM EDT Component Value Date TSH 2.71 11/14/2015 * Telephone Encounter - Natividad Hummel - 03/15/2016 1:10 PM EDT Patient would like script to be: E-PRESCRIBED/FAXED TO PHARMACY WHEN WAS THE PATIENT'S LAST APPOINTMENT IN ADULT MEDICINE? 03/09/16 WHEN WAS THE LAST TIME THE PATIENT SAW THEIR PCP? 2013 Does patient have an upcoming appointment? No-[facility] due to refill request. Appt due (THE MEDICATION REQUESTED IS ON THE MED [...] on filedocumented in this encounter Care Teams Heel Cementer Relationship Specialty Start Date End Date Shiela Martinez MD PCP - General 02/26/11 12/14/18 Tracy Sutton, DO PCP - General Internal Medicine 12/15/18 07/06/21 Cayetano Camacho, PCP - General Internal Medicine 07/07/21 2 Traci Menendez, JOANIE PCP - General Nurse Practioner Adult Health 12/05/21 documented as of this encounter
--- OUTSIDE RECORDS SUMMARY | 2024-12-08 09:30 | XMS_ITS | Encounter Summary ---
Author Organization [facility] Address [address] [place] [address] Care Team Providers Care Logistics Loss Prevention Manager Name Role Phone Tracy Sutton DO Primary Care Pro vider Unavailable Cayetano Camacho DO Primary Care Provider Traci Lin DNP Primary Care Provider Yakelin presley Encounter Details Date Type Department Care Team Description 11/28/2020 Release of Information Medical Records [address] [place] [id number] Abstract, Provider Social History Tobacco Use Types [...] on filedocumented in this encounter Care Teams Logistics Loss Prevention Manager Relationship Specialty Start Date End Date Tracy Sutton DO PCP - General Internal Medicine 12/15/18 07/06/21 Cayetano Camacho DO PCP - General Internal Medicine 07/07/21 2 Traci Menendez DNP PCP - General Nurse Practioner Adult Health 12/05/21 documented as of this encounter
--- OUTSIDE RECORDS SUMMARY | 2024-12-08 09:30 | XMS_ITS | Encounter Summary ---
Author Organization [facility] Address [address] [place] [address] Care Team Providers Care Duty Manager Name Role Phone Shiela Martinez MD Primary Care Provider Unava ilable Tracy Sutton DO Primary Care Pro vider Unavailable Cayetano Camacho DO Primary Care Provider Tanesha Traci Urrutia DNP Primary Care Provider Yakelin presley Encounter Details Date Type Department Care Team Description 10/24/2016 Outside Cutter Report Medical Records [address] [place] [address] Shanell Guajardo, RD, LDN [address] [address] Social History Tobacco Use Types Packs/Day Years [...] on filedocumented in this encounter Care Teams Duty Manager Relationship Specialty Start Date End Date Shiela Martinez MD PCP - General 02/26/11 12/14/18 Tracy Sutton DO PCP - General Internal Medicine 12/15/18 07/06/21 Cayetano Camacho DO PCP - General Internal Medicine 07/07/21 2 Traci Menendez, DNP PCP - General Nurse Practioner Adult Health 12/05/21 documented as of this encounter
--- OUTSIDE RECORDS SUMMARY | 2024-12-08 09:30 | XMS_ITS | Encounter Summary ---
Author Organization [facility] Address [address] [place] [address] Care Team Providers Care Cigarette Maker Name Role Phone Shiela Martinez MD Primary Care Provider Unava ilTracy Georges DO Primary Care Pro vider Unavailable Cayetano Camacho DO Primary Care Provider Tanesha Traci Urrutia DNP Primary Care Provider Yakelin presley Reason for Visit * Reason Onset Date Comments Faxed Refill 04/23/2018 Encounter Details Date Type Department Care Team Description 04/23/2018 Refill Adult Medicine [address] [address] Shiela Martinez MD Faxed Refill Social History Tobacco Use Types Packs/Day Years [...] encounter Miscellaneous Notes * Telephone Encounter - José Miguel Prakash L.P.N. - 04/23/2018 4:53 PM EDT Please review last seen in 04/02 please review Why is the RX denied * Telephone Encounter - Suzi Padron M.A. - 04/23/2018 3:07 PM EDT Lab Results Component Value Date TSH 2.59 03/02/2018 * Telephone Encounter - Vannesa Rodríguez - 04/23/2018 1:35 PM EDT Patient would like script to be: E-PRESCRIBED/FAXED TO PHARMACY WHEN WAS THE PATIENT'S LAST APPOINTMENT IN ADULT MEDICINE? 04/02/2018 WHEN WAS THE LAST TIME THE PATIENT SAW THEIR PCP? 09/13/2017 Does patient have an upcoming appointment? No-unable to reach left [facility] to call for appointment due to refill request. Appt due (THE MEDICATION REQUESTED IS ON THE MED LIST ABOVE) All of the medications requested were on the CURRENT MEDS list Did you check the Pharmacy information above?: YES Patient wants: 90 -day supply Is this a mail order prescription request ? NO Patients current insurance carrier is: Payor: [employer] / Plan: [employer] INSURANCE / Product Type: OTHER documented in this encounter Plan of Treatment Not on file documented as of this encounter Visit Diagnoses Not on filedocumented in this encounter Care Teams Cigarette Maker Relationship Specialty Start Date End Date Shiela Martinez MD PCP - General 02/26/11 12/14/18 Tracy Sutton, DO PCP - General Internal Medicine 12/15/18 07/06/21 Cayetano Camacho, DO PCP - General Internal Medicine 07/07/21 2 Traci Menendez, DNP PCP - General Nurse Practioner Adult Health 12/05/21 documented as of this encounter
--- OUTSIDE RECORDS SUMMARY | 2024-12-08 09:30 | XMS_ITS | Encounter Summary ---
Author Organization [facility] Address [address] [place] [address] Care Team Providers Care Laborer Powerhouse Name Role Phone Tracy Sutton DO Primary Care Pro vider Cayetano Acevedo DO Primary Care Provider Traci Lin DNP Primary Care Provider Yakelin presley Reason for Visit * Reason Comments E-prescribe Rx Request Encounter Details Date Type Department Care Team Description 2021 Refill Adult Medicine [address] [address] Tracy Sutton DO E-prescribe Rx Request Social History Tobacco Use [...] encounter Miscellaneous Notes * Telephone Encounter - Toshia Herrera M.A. - 2021 4:11 PM EDT Last office visit 10/28/20 Next office visit 04/27/21 Lab Results Component Value Date TSH 0.26 08/04/2020 * Telephone Encounter - Lin Floyd - 2021 12:41 PM EDT Patient would like script to be: E-PRESCRIBED/FAXED TO PHARMACY WHEN WAS THE PATIENT'S LAST APPOINTMENT IN ADULT MEDICINE? 10/28/2020 WHEN WAS THE LAST TIME THE PATIENT SAW THEIR PCP? 09/28/2020 Does patient have an upcoming appointment? Yes 04/27/2021 (THE MEDICATION REQUESTED IS ON THE MED [...] on filedocumented in this encounter Care Teams Laborer Powerhouse Relationship Specialty Start Date End Date Tracy Sutton, PCP - General Internal Medicine 12/15/18 07/06/21 Cayetano Camacho DO PCP - General Internal Medicine 07/07/21 2 Traci Menendez, JOANIE PCP - General Nurse Practioner Adult [facility] 12/05/21 documented as of this encounter
--- OUTSIDE RECORDS SUMMARY | 2024-12-08 09:30 | XMS_ITS | Encounter Summary ---
Author Organization [facility] Address [address] [place] [address] Care Team Providers Care Fly Maker Name Role Phone Tracy Sutton DO Primary Care Pro vider Cayetano Acevedo DO Primary Care Provider Traci Lin DNP Primary Care Provider Yakelin presley Reason for Visit * Reason Comments E-prescribe Rx Request Encounter Details Date Type Department Care Team Description 03/24/2021 Refill Adult Medicine [address] [address] Donnie Martin MD [address] [place] [id number] E-prescribe Rx Request Social History Tobacco Use [...] encounter Miscellaneous Notes * Telephone Encounter - Elyssa Barba PA-C - 03/28/2021 5:11 PM EDT No further refills will be given until she has lab work done. * Telephone Encounter - Rin Clemons M.A. - 03/28/2021 10:48 AM EDT Lab Results Component Value Date TSH 0.26 08/04/2020 Pending appt with Alida 04/2021 * Telephone Encounter - Payton Allred - 03/25/2021 11:59 AM EDT Patient would like script to be: E-PRESCRIBED/FAXED TO PHARMACY WHEN WAS THE PATIENT'S LAST APPOINTMENT IN ADULT MEDICINE? 10/28/2020 WHEN WAS THE LAST TIME THE PATIENT SAW THEIR PCP? 09/28/2020 Does patient have an upcoming appointment? Yes 04/28/2021 (THE MEDICATION REQUESTED IS ON THE MED [...] on filedocumented in this encounter Care Teams Fly Maker Relationship Specialty Start Date End Date Tracy Sutton, PCP - General Internal Medicine 12/15/18 07/06/21 Cayetano Camacho DO PCP - General Internal Medicine 07/07/21 2 Traci Menendez, JOANEI PCP - General Nurse Practioner Adult Health 12/05/21 documented as of this encounter
--- OUTSIDE RECORDS SUMMARY | 2024-12-08 09:31 | XMS_ITS | Encounter Summary ---
Author Organization [facility] Address [address] [place] [address] Care Team Providers Care Feed Mixer Name Role Phone Tracy Sutton DO Primary Care Pro vider Unavailable Cayetano Camacho DO Primary Care Provider Traci Lin DNP Primary Care Provider Yakelin presley Reason for Visit * Reason Onset Date Comments Mychart Rx Refill 08/23/2019 Encounter Details Date Type Department Care Team Description 08/23/2019 Pt. 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 - 08/23/2019 11:29 AM EDTFrom: Nury Olivera To: Tracy Giron DO Sent: 08/23/2019 11:15 AM EDT Subject: Thyroid med Good morning. I have 4 doses left on my levothyroxine tablets and 0 refills. I need a refill please. Thank you. Have a great day. -Nury documented in this encounter Plan of Treatment Not on file documented as of this encounter Results * (ABNORMAL) TSH (08/29/2019 3:52 PM EDT) TSH 5.24(H) 0.40 - 4.00 uIU/ml 08/29/2019 7:07 PM EDT [facility] [employer] [employer] 08/29/2019 3:52 PM EDT 08/29/2019 3:52 PM EDT Tracy Giron DO LAB [facility] documented in this encounter Visit Diagnoses Diagnosis Hypothyroidism due to acquired atrophy of thyroid- Primary documented in this encounter Care Teams Feed Mixer Relationship Specialty Start Date End Date Tracy Sutton DO PCP - General Internal Medicine 12/15/18 07/06/21 Cayetano Camacho DO PCP - General Internal Medicine 07/07/21 2 Traci Menendez, JOANIE PCP - General Nurse Practioner Adult Health 12/05/21 documented as of this encounter
--- OUTSIDE RECORDS SUMMARY | 2024-12-08 09:31 | XMS_ITS | Encounter Summary ---
Author Organization [facility] Address [address] [place] [address] Care Team Providers Care Health Technical Writer Name Role Phone Shiela Martinez MD Primary Care Provider Unava ilable Tracy Sutton DO Primary Care Pro vider Unavailable Cayetano Camacho DO Primary Care Provider Tanesha Traci Urrutia DNP Primary Care Provider Yakelin presley Encounter Details Date Type Department Care Team Description 12/23/2013 Geography Head Report Medical Records [address] [place] [id number] Social History Tobacco Use Types Packs/Day Years [...] on filedocumented in this encounter Care Teams Health Technical Writer Relationship Specialty Start Date End Date Shiela Martinez MD PCP - General 02/26/11 12/14/18 Tracy Sutton DO PCP - General Internal Medicine 12/15/18 07/06/21 Cayetano Camacho DO PCP - General Internal Medicine 07/07/21 2 Menendez, Traci R, DNP PCP - General Nurse Practioner Adult Health 12/05/21 documented as of this encounter
--- OUTSIDE RECORDS SUMMARY | 2024-12-08 09:31 | XMS_ITS | Encounter Summary ---
Author Organization [facility] Address [address] [place] [address] Care Team Providers Care Machine Rope Maker Name Role Phone Shiela Martinez MD Primary Care Provider Unava ilable Tracy Sutton DO Primary Care Pro vider Unavailable Cayetano Camacho DO Primary Care Provider Tanesha Traci Urrutia DNP Primary Care Provider Yakelin presley Encounter Details Date Type Department Care Team Description 08/23/2017 Reading Aide Report Medical Records [address] [place] [address] Shanell Guajardo, RD, LDN [address] [address] Social History Tobacco Use Types Packs/Day Years [...] on filedocumented in this encounter Care Teams Machine Rope Maker Relationship Specialty Start Date End Date Shiela Martinez MD PCP - General 02/26/11 12/14/18 Tracy Sutton DO PCP - General Internal Medicine 12/15/18 07/06/21 Cayetano Camacho DO PCP - General Internal Medicine 07/07/21 2 Traci Menendez, DNP PCP - General Nurse Practioner Adult Health 12/05/21 documented as of this encounter
--- OUTSIDE RECORDS SUMMARY | 2024-12-08 09:31 | XMS_ITS | Encounter Summary ---
Author Organization [facility] Address [address] [place] [address] Care Team Providers Care Instrument Mechanic Name Role Phone Shiela Martinez MD Primary Care Provider Unava ilable Tracy Sutton DO Primary Care Pro vider Unavailable Cayetano Camacho DO Primary Care Provider Tanesha Traci Urrutia DNP Primary Care Provider Yakelin presley Encounter Details Date Type Department Care Team Description 01/21/2015 Release of Information Medical Records [address] [place] [id number] Abstract, Provider Social History Tobacco Use Types [...] on filedocumented in this encounter Care Teams Instrument Mechanic Relationship Specialty Start Date End Date Shiela Martinez MD PCP - General 02/26/11 12/14/18 Tracy Sutton DO PCP - General Internal Medicine 12/15/18 07/06/21 Cayetano Camacho DO PCP - General Internal Medicine 07/07/21 2 Traci Menendez, DNP PCP - General Nurse Practioner Adult Health 12/05/21 documented as of this encounter
--- OUTSIDE RECORDS SUMMARY | 2024-12-08 09:31 | XMS_ITS | Encounter Summary ---
Author Organization [facility] Address [address] [place] [address] Care Team Providers Care Audio/Visual Operator Name Role Phone Shiela Martinez MD Primary Care Provider Unava ilTracy Georges DO Primary Care Pro vider Unavailable Cayetano Camacho DO Primary Care Provider Tanesha Traci Urrutia DNP Primary Care Provider Yakelin presley Encounter Details Date Type Department Care Team Description 03/21/2015 Pt. Non Urgent Medical Question Adult Medicine [facility] [address] [place] [address] Orlando Burch FNP [address] [place] [address] Social History Tobacco Use Types Packs/Day Years Used Date Smoking Tobacco: Never Smokeless Tobacco: Never Alcohol Use Standard Drinks/Week Comments Yes 0 (1 standard drink = 0.6 oz pure alcohol) socially, rare, 1-2 drinks on occasion Sex Assigned at Date Recorded Not on file Job Start Date Occupation Industry Not on file Not on file Not on file documented as of this encounter Progress Notes * Kera Yancey M.A. - 03/22/2015 8:09 AM EDTFrom: Nury Olivera To: CALVIN Oquendo Sent: 03/21/2015 4:56 PM EDT Subject: quick question Good afternoon. I saw your about a week and half ago for my Knee and couldn't remember if I was suppose to do a follow up aappointment for it a month later or not. Thanks documented in this encounter Plan of Treatment Not on file documented as of this encounter Visit Diagnoses Not on filedocumented in this encounter Care Teams Audio/Visual Operator Relationship Specialty Start Date End Date Shiela Martinez MD PCP - General 02/26/11 12/14/18 Tracy Sutton, DO PCP - General Internal Medicine 12/15/18 07/06/21 Cayetano Camacho, DO PCP - General Internal Medicine 07/07/21 2 Traci Menendez DNP PCP - General Nurse Practioner Adult Health 12/05/21 documented as of this encounter
--- OUTSIDE RECORDS SUMMARY | 2024-12-08 09:31 | XMS_ITS | Encounter Summary ---
Author Organization [facility] Address [address] [place] [address] Care Team Providers Care Crisis Worker Name Role Phone Shiela Martinez MD Primary Care Provider Unava Tracy Strauss DO Primary Care Pro vider Unavailable Cayetano Camacho DO Primary Care Provider Tanesha Traci Urrutia DNP Primary Care Provider Yakelin presley Reason for Visit * Reason Comments E-prescribe Rx Request Encounter Details Date Type Department Care Team Description 07/23/2017 Refill Adult Medicine [address] [address] Sarita Urbina APRN E-prescribe Rx Request Social History Tobacco Use [...] encounter Miscellaneous Notes * Telephone Encounter - Karen Victoria M.A. - 07/23/2017 12:22 PM EDT Lab Results Component Value Date TSH 6.34 01/04/2017 * Telephone Encounter - Payton Allred - 07/23/2017 9:32 AM EDT Patient would like script to be: E-PRESCRIBED/FAXED TO PHARMACY ?? WHEN WAS THE PATIENT'S LAST APPOINTMENT IN ADULT MEDICINE? 01/03/2017 ?? WHEN WAS THE LAST TIME THE PATIENT SAW THEIR PCP? Same as above ?? Does patient have an upcoming appointment? No-unable to reach left [facility] to call for appointment due to refill request. Appt due ?? (THE MEDICATION REQUESTED IS ON THE MED LIST ABOVE) All of the medications requested were on the CURRENT MEDS list ?? Did you check the Pharmacy information above?: YES ?? Patient wants: 30 -day supply ?? Is this a mail order prescription request ? NO ? Patients current insurance carrier is: Payor: [facility] / Plan: [facility] INSURANCE / Product Type: OTHER ? documented in this encounter Plan of Treatment Not on file documented as of this encounter Results * (ABNORMAL) THYROID PROFILE W/TSH (09/07/2017 2:17 PM EDT) TSH CASCADE 6.70(H) 0.40 - 4.00 uIU/ml 09/07/2017 3:27 PM EDT [facility] 09/07/2017 2:17 PM EDT 09/07/2017 2:17 PM EDT Shiela Martinez MD LAB Performing Organization Address City/State/[facility] Co de Phone Number [facility] [address] [facility] documented in this encounter Visit Diagnoses Diagnosis Hypothyroidism due to acquired atrophy of thyroid- Primary documented in this encounter Care Teams Crisis Worker Relationship Specialty Start Date End Date Shiela Martinez MD PCP - General 02/26/11 12/14/18 Tracy Sutton, PCP - General Internal Medicine 12/15/18 07/06/21 Cayetano Camacho, PCP - General Internal Medicine 07/07/21 2 Traci Menendez, JOANIE PCP - General Nurse Practioner [facility] 12/05/21 documented as of this encounter
--- OUTSIDE RECORDS SUMMARY | 2024-12-08 09:31 | XMS_ITS | Encounter Summary ---
Author Organization [facility] Address [address] [place] [address] Care Team Providers Care Actionscript Developer Name Role Phone Shiela Martinez MD Primary Care Provider Unava ilable Tracy Sutton DO Primary Care Pro vider Unavailable Cayetano Camacho DO Primary Care Provider Tanesha Traci Urrutia DNP Primary Care Provider Yakelin presley Encounter Details Date Type Department Care Team Description 04/22/2015 Principal Research Economist Report Medical Records [address] [place] [id number] Darnell Lynne MD Social History Tobacco Use Types Packs/Day Years [...] on filedocumented in this encounter Care Teams Actionscript Developer Relationship Specialty Start Date End Date Shiela Martinez MD PCP - General 02/26/11 12/14/18 Tracy Sutton DO PCP - General Internal Medicine 12/15/18 07/06/21 Cayetano Camacho DO PCP - General Internal Medicine 07/07/21 2 Traci Menendez, DNP PCP - General Nurse Practioner Adult Health 12/05/21 documented as of this encounter
--- OUTSIDE RECORDS SUMMARY | 2024-12-08 09:31 | XMS_ITS | Encounter Summary ---
Author Organization [facility] Address [address] [place] [address] Care Team Providers Care Devops Architect Name Role Phone Tracy Sutton DO Primary Care Pro vider Unavailable Cayetano Camacho DO Primary Care Provider Traci Lin DNP Primary Care Provider Yakelin presley Encounter Details Date Type Department Care Team Description 02/06/2019 Orders Only Adult Medicine [address] [address] Tracy Sutton DO Need for prophylactic vaccination and inoculation against varicella; Need for prophylactic vaccination with ljapguj-vgmyl-pifselo (MMR) vaccine Social History Tobacco Use Types Packs/Day Years [...] Type Priority Associated Diagnoses Orde r Schedule CHICKEN POX VACCINE,LIVE,SUBCU T Immunizations/I njection Routine Need for prophylactic vaccination and inoculation against varicella Need for prophylactic vaccination with bebhmle-obpzy-pibykck (MMR) vaccine 1 Occurrences starting 02/06/2019 until 08/05/2019 documented as of this encounter Visit Diagnoses Diagnosis Need for prophylactic vaccination and inoculation against varicella Need for prophylactic vaccination with hcslscl-mlwob-muoilfz (MMR) vaccine documented in this encounter Care Teams Devops Architect Relationship Specialty Start Date End Date Tracy Sutton DO PCP - General Internal Medicine 12/15/18 07/06/21 Cayetano Camacho DO PCP - General Internal Medicine 07/07/21 2 Traci Menendez, JOANIE PCP - General Nurse Practioner Adult Health 12/05/21 documented as of this encounter
--- OUTSIDE RECORDS SUMMARY | 2024-12-08 09:31 | XMS_ITS | Encounter Summary ---
Author Organization [facility] Address [address] [place] [address] Care Team Providers Care Butting Saw Operator Name Role Phone Shiela Martinez MD Primary Care Provider Unava ilTracy Georges DO Primary Care Pro vider Unavailable Cayetano Camacho DO Primary Care Provider Tanesha Traci Urrutia DNP Primary Care Provider Yakelin presley Reason for Visit * Reason Comments E-prescribe Rx Request Encounter Details Date Type Department Care Team Description 03/22/2015 Refill Adult Medicine [address] [address] Shanell Rubio PA-C [address] [place] [address] E-prescribe Rx Request Social History Tobacco Use [...] Telephone Encounter - Shelley Dunlap M.A. - 03/22/2015 3:57 PM EDT Faxed to pharmacy * Telephone Encounter - Vannesa Rodríguez - 03/22/2015 1:24 PM EDT Patient would like script to be: E-PRESCRIBED/FAXED TO PHARMACY WHEN WAS THE PATIENT'S LAST APPOINTMENT IN ADULT MEDICINE? 03/11/2015 WHEN WAS THE LAST TIME THE PATIENT SAW THEIR PCP? 09/20/2014 Does patient have an upcoming appointment? No-unable to reach left [facility] to call for appointment due to refill request. Appt due 09/21/2015 for physical (THE MEDICATION REQUESTED IS ON THE MED LIST ABOVE) All of the medications requested were on the CURRENT MEDS list Did you check the Pharmacy information above?: YES Patient wants: 30 -day supply Is this a mail order prescription request ? NO Patients current insurance carrier is: Payor: [facility] INSURANCE / Plan: [facility] INSURANCE / Product Type: OTHER documented in this encounter Plan of Treatment Not on file documented as of this encounter Visit Diagnoses Not on filedocumented in this encounter Care Teams Butting Saw Operator Relationship Specialty Start Date End Date Shiela Martinez MD PCP - General 02/26/11 12/14/18 Tracy Sutton, DO PCP - General Internal Medicine 12/15/18 07/06/21 Cayetano Camacho, PCP - General Internal Medicine 07/07/21 2 Traci Menendez, DNP PCP - General Nurse Practioner Adult [facility] 12/05/21 documented as of this encounter
--- OUTSIDE RECORDS SUMMARY | 2024-12-08 09:31 | XMS_ITS | Encounter Summary ---
Author Organization [facility] Address [address] [place] [address] Care Team Providers Care Soft Water Mechanic Name Role Phone Shiela Martinez MD Primary Care Provider Unava ilable Tracy Sutton DO Primary Care Pro vider Unavailable Cayetano Camacho DO Primary Care Provider Tanesha Traci Urrutia DNP Primary Care Provider Yakelin presley Encounter Details Date Type Department Care Team Description 03/25/2015 Checkout Supervisor Report Medical Records [address] [place] [address] Darnell Lynne MD Social History Tobacco Use [...] on filedocumented in this encounter Care Teams Soft Water Mechanic Relationship Specialty Start Date End Date Shiela Martinez MD PCP - General 02/26/11 12/14/18 Tracy Sutton DO PCP - General Internal Medicine 12/15/18 07/06/21 Cayetano Camacho DO PCP - General Internal Medicine 07/07/21 2 Traci Menendez, DNP PCP - General Nurse Practioner Adult Health 12/05/21 documented as of this encounter
--- OUTSIDE RECORDS SUMMARY | 2024-12-08 09:31 | XMS_ITS | Encounter Summary ---
Author Organization [facility] Address [address] [place] [address] Care Team Providers Care Bad Cloth Checker Name Role Phone Tracy Sutton DO Primary Care Pro vider Unavailable Cayetano Camacho DO Primary Care Provider Traci Lin DNP Primary Care Provider Yakelin presley Encounter Details Date Type Department Care Team Description 05/27/2019 Transfer Agent Report Medical Records [address] [place] [address] Cheyenne Palma PA-C Social History Tobacco Use Types Packs/Day [...] on filedocumented in this encounter Care Teams Bad Cloth Checker Relationship Specialty Start Date End Date Tracy Sutton DO PCP - General Internal Medicine 12/15/18 07/06/21 Cayetano Camacho DO PCP - General Internal Medicine 07/07/21 2 Traci Menendez DNP PCP - General Nurse Practioner Adult Health 12/05/21 documented as of this encounter
--- OUTSIDE RECORDS SUMMARY | 2024-12-08 09:31 | XMS_ITS | Encounter Summary ---
Author Organization [facility] Address [address] [place] [address] Care Team Providers Care Integrated Circuit Layout Designer Name Role Phone Shiela Martinez MD Primary Care Provider Unava ilable Tracy Sutton DO Primary Care Pro vider Unavailable Cayetano Camacho DO Primary Care Provider Tanesha Traci Urrutia DNP Primary Care Provider Yakelin presley Encounter Details Date Type Department Care Team Description 06/11/2018 Process Control Engineer Report Medical Records [address] [place] [address] Shanell Guajardo, RD, LDN [address] [address] Social History Tobacco Use Types Packs/Day Years [...] on filedocumented in this encounter Care Teams Integrated Circuit Layout Designer Relationship Specialty Start Date End Date Shiela Martienz MD PCP - General 02/26/11 12/14/18 Tracy Sutton DO PCP - General Internal Medicine 12/15/18 07/06/21 Cayetano Camacho DO PCP - General Internal Medicine 07/07/21 2 Traci Menendez, DNP PCP - General Nurse Practioner Adult Health 12/05/21 documented as of this encounter
--- OUTSIDE RECORDS SUMMARY | 2024-12-08 09:31 | XMS_ITS | Encounter Summary ---
Author Organization [facility] Address [address] [place] [address] Care Team Providers Care Messenger Office Name Role Phone Demetrio Nowak MD Primary Care Provider Unava ilTracy Georges DO Primary Care Pro vider Unavailable Cayetano Camacho DO Primary Care Provider Tanesha Traci Urrutia DNP Primary Care Provider Yakelin presley Reason for Visit * Reason Onset Date Comments TEST RESULTS 09/26/2015 Encounter Details Date Type Department Care Team Description 09/26/2015 Telephone Adult [address] [address] Demetrio Nowak MD TEST RESULTS Social History Tobacco Use Types Packs/Day Years [...] encounter Miscellaneous Notes * Telephone Encounter - Lucila Piedra M.A. - 09/26/2015 9:52 AM EST Please give pt message below . Rx sent to pharmacy and order for labs in 6 wks placed. * Telephone Encounter - Lucila Piedra M.A. - 09/26/2015 9:52 AM EST Message copied by LUCILA PIEDRA M.A. on SatSep 26, 2015 9:52 AM ------ Message from: DEMETRIO NOWAK Created: SatSep 26, 2015 2:09 AM Thyroid is a little over-supplemented. TSH is low Pls advise pt to decrease levothyroxine to 175 mcg daily and check TSH in 6 weeks ------ documented in this encounter Plan of Treatment Not on file documented as of this encounter Visit Diagnoses Not on filedocumented in this encounter Care Teams Messenger Office Relationship Specialty Start Date End Date Demetrio Nowak MD PCP - General 02/26/11 12/14/18 Tracy Sutton, DO PCP - General Internal Medicine 12/15/18 07/06/21 Cayetano Camacho DO PCP - General Internal Medicine 07/07/21 2 Traci Menendez, JOANIE PCP - General Nurse Practioner Adult [facility] 12/05/21 documented as of this encounter
--- OUTSIDE RECORDS SUMMARY | 2024-12-08 09:31 | XMS_ITS | Encounter Summary ---
Author Organization [facility] Address [address] [place] [address] Care Team Providers Care Furniture Finisher Helper Name Role Phone Shiela Martinez MD Primary Care Provider Unava ilTracy Georges DO Primary Care Pro vider Unavailable Cayetano Camacho DO Primary Care Provider Tanesha Traci Urrutia DNP Primary Care Provider Yakelin presley Reason for Visit * Reason Comments E-prescribe Rx Request Encounter Details Date Type Department Care Team Description 02/07/2018 Refill Adult Medicine [address] [address] Shiela Martinez MD E-prescribe Rx Request Social [...] encounter Miscellaneous Notes * Telephone Encounter - Sunni Napier M.A. - 02/10/2018 2:02 PM EDT Lab Results Component Value Date TSH 6.70 09/07/2017 * Telephone Encounter - Leanne Garner - 02/10/2018 1:25 PM EDT Patient would like script to be: E-PRESCRIBED/FAXED TO PHARMACY WHEN WAS THE PATIENT'S LAST APPOINTMENT IN ADULT MEDICINE? 11-02-2017 WHEN WAS THE LAST TIME THE PATIENT SAW THEIR PCP? 01-03-2017 Does patient have an upcoming appointment? Yes 02-25-2018 (THE MEDICATION REQUESTED IS ON THE MED [...] on filedocumented in this encounter Care Teams Furniture Finisher Helper Relationship Specialty Start Date End Date Shiela Martinez MD PCP - General 02/26/11 12/14/18 Tracy Sutton, DO PCP - General Internal Medicine 12/15/18 07/06/21 Cayetano Camacho, DO PCP - General Internal Medicine 07/07/21 2 Traci Menendez DNP PCP - General Nurse Practioner [facility] 12/05/21 documented as of this encounter
--- OUTSIDE RECORDS SUMMARY | 2024-12-08 09:31 | XMS_ITS | Patient Health Record ---
Author Organization [facility] Address [address] [place] [phone] Care Team Providers Care Greenhouse Or Nursery Transplanter Name Role Phone Latrice Gillespie Primary Care Provider BRET SMITH MD Unavailable Unavailable Bret Smith Unavailable [phone] Allergies Allergen (clinical drug ingredient) Drug/Non Drug Allergy documented on EMR Reaction Allergy Type Onset Date Status amoxicillin Amoxicillin Unknown Drug Allergy Act mary carmen Results Component Value Reference Range Notes Albumin/Creatinine Ratio,Uri [id number] Reviewed date:03/08/2024 08:14:44 AM Interpretation: Performing Lab:[facility] [place], [address] [facility], Phone - [phone], Director - Madhuri Notes/Report: Creatinine, Urine 58.7 Not Estab. mg/dL Albumin, Urine <3.0 Not Estab. ug/mL Alb/Creat Ratio <5 0-29 mg/g creat Normal: 0 - 29 Moderately increased: 30 - 300 Severely increased: >300 Vitamin D, 25-Jeykksm-[id number] Reviewed date:03/08/2024 08:14:44 AM Interpretation: Performing Lab:[facility] [place], [address] [facility], [place], Phone - [phone], Director - Madhuri Notes/Report: Vitamin D, 25-Hydroxy 25.3 30.0-100.0 ng/mL Vitamin D deficiency has been defined by the [place] of [employer] and an Endocrine Society practice guideline as a level of serum 25-OH vitamin D less than 20 ng/mL (1,2). The Endocrine Society went on to further define vitamin D insufficiency as a level between 21 and 29 ng/mL (2). 1. IOM ([place] of [place]). 2010. Dietary reference intakes for calcium and D. [place]: The National Academies Press. 2. Heidi MF, Laila [place], Claritza TRUJILLO, et al. Evaluation, treatment, and prevention of vitamin D deficiency: an Endocrine Society clinical practice guideline. JCEM. 2010; 96(7):1911-30. CBC With Differential/Platel et-[id number] Reviewed date:03/08/2024 08:14:44 AM Interpretation: Performing Lab:[facility] [place], [address] [facility], Phone - [phone], Director - Madhuri Notes/Report: WBC 9.6 3.4-10.8 x10E3/uL RBC 4.92 3.77-5.28 x10E6/uL Hemoglobin 14.2 11.1-15.9 g/dL Hematocrit 43.1 34.0-46.6 % MCV 88 79-97 fL MCH 28.9 26.6-33.0 pg MCHC 32.9 31.5-35.7 g/dL RDW 13.0 11.7-15.4 % Platelets 292 150-450 x10E3/uL Neutrophils 68 Not Estab. % Lymphs 26 Not Estab. % Monocytes 5 Not Estab. % Eos 1 Not Estab. % Basos 0 Not Estab. % Neutrophils (Absolute) 6.4 1.4-7.0 x10E3/uL Lymphs (Absolute) 2.5 0.7-3.1 x10E3/uL Monocytes(Absolute) 0.5 0.1-0.9 x10E3/uL Eos (Absolute) 0.1 0.0-0.4 x10E3/uL Baso (Absolute) 0.0 0.0-0.2 x10E3/uL Immature Granulocytes 0 Not Estab. % Immature Grans (Abs) 0.0 0.0-0.1 x10E3/uL Urinalysis, Complete-[id number] Reviewed date:03/08/2024 08:14:44 AM Interpretation: Performing Lab:[facility] [place], [address] [facility], [place], Phone - [phone], Director - Madhuri Notes/Report: Specific [place] 1.014 1.005-1.030 pH 6.5 5.0-7.5 Urine-Color Yellow Yellow Appearance Clear Clear WBC Esterase Trace Negative Protein Negative Negative/Trace Glucose Negative Negative Ketones Negative Negative Occult Blood Negative Negative Bilirubin Negative Negative Urobilinogen,Semi-Qn 0.2 0.2-1.0 mg/dL Nitrite, Urine Negative Negative Microscopic Examination See below: Micr oscopic was indicated and was performed. WBC 0-5 0 - 5 /hpf RBC None seen 0 - 2 /hpf Epithelial Cells (non renal) 0-10 0 - 10 /hpf Casts None seen None seen /lpf Bacteria Few None seen/Few Hemoglobin [id number] Reviewed date:03/08/2024 08:14:44 AM Interpretation: Performing [facility], [address] [place] [address], Phone - [phone], Director - Madhuri Notes/Report: Hemoglobin A1c 7.5 4.8-5.6 % . Prediabetes: 5.7 - 6.4 Diabetes: >6.4 Glycemic control for adults with diabetes: <7.0 Hemoglobin A1C Reviewed date:08/27/2024 04:46:14 PM Interpretation: Performing Lab: Notes/Report: [facility] [place] [facility] ([facility] [place] [facility] Lot: [id number] Hemoglobin A1C Reviewed date:10/05/2024 11:56:06 AM Interpretation: Performing Lab: Notes/Report: [facility] [place] ([facility] [place] Lot: [id number] Respiratory Panel w/ SARS-Co [id number] Reviewed date:10/07/2024 06:55:54 AM Interpretation: Performing Lab:[facility] [place], [address] [facility], Phone - [phone], Director - Madhuri Notes/Report: Clinical Information:SRC: Adenovirus Not Detected Not Detected Coronavirus HKU1 Not Detected Not Detected Coronavirus NL63 Not Detected Not Detected Coronavirus 229E Not Detected Not Detected Coronavirus OC43 Not Detected Not Detected SARS-CoV-2 Not Detected Not Detected Human Metapneumovirus Not Detected Not Detected Human Rhinovirus/Enterovirus Detected Not Detected Influenza A Not Detected Not Detected Influenza A/H1 TNP Test not perf ormed Influenza A/H1-2009 TNP Test not performed Influenza A/H3 TNP Test not perf ormed Influenza B Not Detected Not Detected Parainfluenza 1 Not Detected Not Detected Parainfluenza 2 Not Detected Not Detected Parainfluenza 3 Not Detected Not Detected Parainfluenza 4 Not Detected Not Detected Respiratory Syncytial Virus Not Detected Not Detected Bordetella parapertussis Not Detected Not Detected Bordetella pertussis Not Detected Not Detected Chlamydophila pneumoniae Not Detected Not Detected Mycoplasma pneumoniae Not Detected Not Detected Albumin/Creatinine Ratio,Uri ne-[id number] Reviewed date:10/07/2024 06:55:54 AM Interpretation: Performing Lab:[facility] [place], [facility], Phone - [phone], Director - MDJodry Notes/Report: Creatinine, Urine 164.4 Not Estab. mg/dL Albumin, Urine 15.2 Not Estab. ug/mL Alb/Creat Ratio 9 0-29 mg/g creat Normal: 0 - 29 Moderately increased: 30 - 300 Severely increased: >300 Comp. Metabolic Panel (14)-3 26913 Reviewed date:10/07/2024 06:55:54 AM Interpretation: Performing Lab:[facility], [facility] [place], Phone - [phone], Director - MDJodry Notes/Report: Glucose 152 70-99 mg/dL BUN 12 6-24 mg/dL Creatinine 0.66 0.57-1.00 mg/dL eGFR 114 >59 mL/min/1.73 BUN/Creatinine Ratio 18 9-23 Sodium 139 134-144 mmol/L Potassium 4.2 3.5-5.2 mmol/L Chloride 97 96-106 mmol/L Carbon Dioxide, Total 27 20-29 mmol/L Calcium 9.4 8.7-10.2 mg/dL Protein, Total 7.4 6.0-8.5 g/dL Albumin 3.8 3.9-4.9 g/dL Globulin, Total 3.6 1.5-4.5 g/dL Bilirubin, Total 0.7 0.0-1.2 mg/dL Alkaline Phosphatase 73 44-121 IU/L AST (SGOT) 24 0-40 IU/L ALT (SGPT) 30 0-32 IU/L TSH reflex to [id number] Reviewed date:10/07/2024 06:55:54 AM Interpretation: Performing Lab:[facility], [facility] [place], Phone - [phone], Director - MDJodry Notes/Report: TSH 1.670 0.450-4.500 uIU/mL CT Neck W Reviewed date:05/27/2024 08:38:58 AM Interpretation: Performing Lab: Notes/Report: Original Ordering Provider: LATRICE GILLESPIE DNP [facility] Hemoglobin A1C Reviewed date:06/24/2024 02:20:15 PM Interpretation: Performing Lab: Notes/Report: [facility] [place] [facility] ([facility] [place] [facility]), [facility] Lot: [id number] Triiodothyronine (T3), Free- [id number] Reviewed date:06/26/2024 08:18:32 PM Interpretation: Performing Lab:[facility] [place], [address] [facility], [place], Phone - [phone], Director - Madhuri Notes/Report: Triiodothyronine (T3), Free 2.9 2.0-4.4 pg/mL Vitamin D, 40-[id number]-[id number] Reviewed date:06/26/2024 08:18:32 PM Interpretation: Performing Lab:[facility] [place], [address] [facility], [place], Phone - [phone], Director - Madhuri Notes/Report: Vitamin D, 25-Hydroxy 23.9 30.0-100.0 ng/mL Vitamin D deficiency has been defined by the [place] of [place] and an Endocrine Society practice guideline as a level of serum 25-OH vitamin D less than 20 ng/mL (1,2). The Endocrine Society went on to further define vitamin D insufficiency as a level between 21 and 29 ng/mL (2). 1. IOM ([place] of [place]). 2010. Dietary reference intakes for calcium and D. [place]: The National Academies Press. 2. Heidi MF, Laila [place], Claritza TRUJILLO, et al. Evaluation, treatment, and prevention of vitamin D deficiency: an Endocrine Society clinical practice guideline. JCEM. 2010; 96(7):1911-30. Albumin/Creatinine Ratio,Uri ne-[id number] Reviewed date:06/26/2024 08:18:33 PM Interpretation: Performing Lab:[facility] [place], [address] [facility], [place], Phone - [phone], Director - Madhuri Notes/Report: Creatinine, Urine 138.3 Not Estab. mg/dL Albumin, Urine 9.0 Not Estab. ug/mL Alb/Creat Ratio 7 0-29 mg/g creat Normal: 0 - 29 Moderately increased: 30 - 300 Severely increased: >300 Comp. Metabolic Panel (14)-3 [id number] Reviewed date:06/26/2024 08:18:33 PM Interpretation: Performing [facility] [place], [address] [place] [address], Phone - [phone], Director - Madhuri Notes/Report: Glucose 113 70-99 mg/dL BUN 12 6-24 mg/dL Creatinine 0.73 0.57-1.00 mg/dL eGFR 107 >59 mL/min/1.73 BUN/Creatinine Ratio 16 9-23 Sodium 138 134-144 mmol/L Potassium 4.6 3.5-5.2 mmol/L Chloride 100 96-106 mmol/L Carbon Dioxide, Total 26 20-29 mmol/L Calcium 9.4 8.7-10.2 mg/dL Protein, Total 7.7 6.0-8.5 g/dL Albumin 4.0 3.9-4.9 g/dL Globulin, Total 3.7 1.5-4.5 g/dL Bilirubin, Total 0.4 0.0-1.2 mg/dL Alkaline Phosphatase 67 44-121 IU/L AST (SGOT) 21 0-40 IU/L ALT (SGPT) 28 0-32 IU/L TSH reflex to [id number] Reviewed date:06/26/2024 08:18:33 PM Interpretation: Performing Lab:[facility] [place] [address] [place] [address], Phone - [phone], Director - Madhuri Notes/Report: TSH 2.360 0.450-4.500 uIU/mL PDF Report Reviewed date:06/26/2024 08:18:33 PM Interpretation: Performing Lab:[facility] [place] [address] [place] [address], Phone - [phone], - Madhuri Notes/Report: HCV Antibody RFX to Quant PC [id number] Reviewed date:03/08/2024 08:14:44 AM Interpretation: Performing Lab:[facility] [address] [place] [address], Phone - [phone], Director - Madhuri Notes/Report: HCV Ab Non Reactive Non Reactive Interpretation: Not infected with HCV unless early or acute infection is suspected (which may be delayed in an immunocompromised individual), or other evidence exists to indicate HCV infection. Comp. Metabolic Panel (14)-3 Reviewed date:03/08/2024 08:14:44 AM Interpretation: Performing Lab:[facility], [address] [facility], Phone - [phone], Director - Ousmaney Notes/Report: Glucose 88 70-99 mg/dL BUN 13 6-24 mg/dL Creatinine 0.68 0.57-1.00 mg/dL eGFR 113 >59 mL/min/1.73 BUN/Creatinine Ratio 19 9-23 Sodium 138 134-144 mmol/L Potassium 4.4 3.5-5.2 mmol/L Chloride 100 96-106 mmol/L Carbon Dioxide, Total 23 20-29 mmol/L Calcium 9.4 8.7-10.2 mg/dL Protein, Total 7.3 6.0-8.5 g/dL Albumin 4.1 3.9-4.9 g/dL Globulin, Total 3.2 1.5-4.5 g/dL A/G Ratio 1.3 1.2-2.2 Bilirubin, Total 0.4 0.0-1.2 mg/dL Alkaline Phosphatase 66 44-121 IU/L AST (SGOT) 23 0-40 IU/L ALT (SGPT) 21 0-32 IU/L LP+Non-HDL Cholesterol-[id number] 5 Reviewed date:03/08/2024 08:14:45 AM Interpretation: Performing Lab:[facility] [place], [address] [facility], Phone - [phone], Director - MDBeey Notes/Report: Cholesterol, Total 165 100-199 mg/dL Triglycerides 91 0-149 mg/dL HDL Cholesterol 45 >39 mg/dL VLDL Cholesterol Roberto 17 5-40 mg/dL LDL Chol Calc ([facility]) 103 0-99 mg/dL Non-HDL Cholesterol 120 0-129 mg/dL TSH reflex to [id number] Reviewed date:03/08/2024 08:14:45 AM Interpretation: Performing Lab:[facility] [place], [address] [facility], Phone - [phone], Director - Ousmaney Notes/Report: TSH 8.540 0.450-4.500 uIU/mL T4,Free (Direct) 1.36 0.82-1.77 ng/dL Hemoglobin A1C Reviewed date:03/23/2024 10:58:03 AM Interpretation: Performing Lab: Notes/Report: [facility] [place] [facility] ([facility] [place] [facility]), Bret Smith MD Lot: [id number] Reviewed date:03/28/2024 10:08:21 AM Interpretation: Performing Lab:[facility] [address] [place] [address], Phone - [phone], Director Hero Woods Notes/Report: DHEA-Sulfate 196.0 57.3-279.2 ug/dL Testosterone-[id number] Reviewed date:03/28/2024 10:08:21 AM Interpretation: Performing Lab:[facility] [address] [place] [address], Phone - [phone], Director Hero Woods Notes/Report: Testosterone 24 8-60 ng/dL Luteinizing Hormone(LH)-[id number] 83 Reviewed date:03/28/2024 10:08:21 AM Interpretation: Performing Lab:[facility] [address] [place] [address], Phone - [phone], Director Hero Woods Notes/Report: LH 3.1 Adult Female Range Follicular phase 2.4 - 12.6 Ovulation phase 14.0 - 95.6 Luteal phase 1.0 - 11.4 Postmenopausal 7.7 - 58.5 FSH-[id number] Reviewed date:03/28/2024 10:08:21 AM Interpretation: Performing Lab:[facility] [address] [place] [address], Phone - [phone], Director Hero Woods Notes/Report: FSH 1.3 Adult Female Range Follicular phase 3.5 - 12.5 Ovulation phase 4.7 - 21.5 Luteal phase 1.7 - 7.7 Postmenopausal 25.8 - 134.8 Progesterone-[id number] Reviewed date:03/28/2024 10:08:21 AM Interpretation: Performing Lab:[facility] [address] [place] [address], Phone - [phone], Director Hero Woods Notes/Report: Progesterone 2.9 Follicular phase 0.1 - 0.9 Luteal phase 1.8 - 23.9 Ovulation phase 0.1 - 12.0 First trimester 11.0 - 44.3 Second trimester 25.4 - 83.3 Third trimester 58.7 - 214.0 Postmenopausal 0.0 - 0.1 Insulin-[id number] Reviewed date:03/28/2024 10:08:21 AM Interpretation: Performing [facility] [address] [place] [address], Phone - [phone], Director - UTMartell Notes/Report: Insulin 100.0 2.6-24.9 uIU/mL ACTH, Plasma-[id number] Reviewed date:03/28/2024 10:08:21 AM Interpretation: Performing Lab:[facility] [address] [place] [address], Phone - [phone], Director - [facility] Notes/Report: ACTH, Plasma 10.1 7.2-63.3 pg/mL ACTH referenc e interval for samples collected between 7 and 10 AM. Prolactin-[id number] Reviewed date:03/28/2024 10:08:21 AM Interpretation: Performing Lab:[facility] [address] [place] [address], Phone - [phone], Director Monahan UTMartell Notes/Report: Prolactin 12.0 4.8-33.4 ng/mL PTH, Intact-[id number] Reviewed date:03/28/2024 10:08:21 AM Interpretation: Performing Lab:[facility] [address] [place] [address], Phone - [phone], - [facility]reet Notes/Report: PTH, Intact 22 15-65 pg/mL Vitamin D, 99-Cgirnkj-[id number] Reviewed date:03/28/2024 10:08:21 AM Interpretation: Performing Lab:[address], Phone - [phone], - UTMartell Notes/Report: Vitamin D, 25-Hydroxy 25.5 30.0-100.0 ng/mL Vitamin D deficiency has been defined by the [place] of [place] and an Endocrine Society practice guideline as a level of serum 25-OH vitamin D less than 20 ng/mL (1,2). The Endocrine Society went on to further define vitamin D insufficiency as a level between 21 and 29 ng/mL (2). 1. IOM ([place] of [place]). 2010. Dietary reference intakes for calcium and D. [place]: The National Academies Press. 2. Laila Pham [place], Claritza TRUJILLO, et al. Evaluation, treatment, and prevention of vitamin D deficiency: an Endocrine Society clinical practice guideline. JCEM. 2010; 96(7):1911-30. Anti-Mullerian Hormone (AMH) -[id number] Reviewed date:03/28/2024 10:08:21 AM Interpretation: Performing Lab[facility], Phone - [phone], Director - [facility] Notes/Report: Anti-Mullerian Hormone (AMH) 1.43 For assays employing antibodies, the possibility exists for interference by heterophile antibodies in the samples.1 1.Ryan Burris Interferences in Immunoassays - still a threat. Clin. Chem. 2000; 46: 9294-9571. This test was developed and its performance characteristics determined by [employer]. It has not been cleared or approved by the Food and Drug Administration. Reference Range: Females 36 - 40y: 0.42 - 8.34 Median 1.69 AMH concentrations of >= 1.06 ng/mL is correlated with a better response to ovarian stimulation, produced more retrievable oocytes and higher odds of live according to Bahman et al. Fertility and Sterility. 2010: 94:2462-8872. The current AMH test method correlates with the study method with a slope of 0.94. Females at risk of ovarian hyperstimulation syndrome or polycystic ovarian syndrome (PCOS) may exhibit elevated serum AMH concentrations. AMH levels from PCOS patients may be 2 to 5 fold higher than age-appropriate reference interval values. Granulosa cell tumors of the ovary may secrete AMH along with other tumor markers. Elevated AMH is not specific for malignancy, and the assay should not be used exclusively to diagnose or exclude an AMH-secreting ovarian tumor. Estrogens Fractionated, S-[id number] Reviewed date:03/28/2024 10:08:22 AM Interpretation: Performing Lab:[facility], [facility], Phone - [phone], Director - [facility] Notes/Report: Estrone, Serum 75 27-231 pg/mL Range Adult (Premenopausal) 27 - 231 Menstrual Cycle (1-10 days) 19 - 149 Menstrual Cycle (11-20 days) 32 - 176 Menstrual Cycle (21-30 days) 37 - 200 Estradiol 81.7 Adult Female Range Follicular phase 12.5 - 166.0 Ovulation phase 85.8 - 498.0 Luteal phase 43.8 - 211.0 Postmenopausal <6.0 - 54.7 1st trimester 215.0 - >4300.0 Shade ECLIA methodology TSH reflex to [id number] Reviewed date:03/28/2024 10:08:22 AM Interpretation: Performing Lab:[facility], [address] [place] [address], Phone - [phone], Director - Peggy Notes/Report: TSH 3.130 0.450-4.500 uIU/mL PDF Report Reviewed date:03/08/2024 08:14:45 AM Interpretation: Performing Lab:[facility] [place], [address] [place] [address], [place], Phone - [phone], Director - Madhuri Notes/Report: Hemoglobin A1C Reviewed date:12/01/2024 10:34:14 AM Interpretation: Performing Lab: Notes/Report: [facility] [place] ([facility] [place]), MD ELADIA Nazario Lot: [id number] PDF Report Reviewed date:03/28/2024 10:08:22 AM Interpretation: Performing Lab:[facility], [facility], Phone - [phone], Director - Peggy Notes/Report: Reason For Referral Reason referral to [facility], Speech and Hearing dept, for a hearing test Faxed Diagnosis 1 Other specified hear ing loss, bilateral (H91.8X3) Referral Organization Bret [facility]ONTILLA Referring Provider First Name Latrice Referring Provider Last Name Shon Referring Provider Speciality Nurse Lio alaniz Referred Provider [facility] er, Speech and Hearing Referred Provider Specialty Audiologists General Notes Randi MARSHALL 01/2024 03:04:08 PM > faxed Referral Priority Routine Reason Can we contact Dr. Beni mao's office to see if he can review pt's recent CT Scan which revealed Mild bilateral enlargement of the thyroid lobes including the midline tracheal narrowing. 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) Referral Organization Bret M[facility]ILLA Referring Provider First Name Latrice Referring Provider Last Name Shon Referring Provider Speciality Nurse Prac ronakr Referred Provider Anel Cobb Referred Provider Specialty Surgery General Notes [facility] 05:46:04 PM > faxed [facility] 06/30/2024 08:22:23 AM >they will book directly with patient, MORRISCECILIARandi Ivan 07/08/2024 04:28:18 PM > FAXED [facility]in Love 07/09/2024 08:39:33 AM >[phone] Ivan 07/14/2024 11:36:26 AM > booked for 07/31/24 at 12:10 Referral Priority Routine Referral Appointment Date 09/03/2024 Reason [facility] End[facility] crine surgeon, [facility], any provider for her. faxed Diagnosis 1 Hypothyroidism, unsp ecified (E03.9) Diagnosis 2 Autoimmune thyroidit is (E06.3) Diagnosis 3 Nontoxic single thyr oid nodule (E04.1) Diagnosis 4 Type 2 diabetes adia itus with hyperglycemia (E11.65) Referral Organization Bret MONTILLA Referring Provider First Name Latrice Referring Provider Last Name Shon Referring Provider Speciality Nurse Lio alaniz Referred Provider Sreekanth Boyle Referred Provider Specialty Endocrinolog y General Notes [facility] 04/2024 03:37:45 PM >faxed Referral Priority Routine Medications Medication SIG (Take, Route, Frequency, Duration) Notes Start Date End Date Status Levothyroxine Sodium 25 MCG TAKE 1 TABLET BY MOUTH EVERY DAY ON EMPTY STOMACH ON SATURDAY/SATURDAY/SATURDAY FOR 30 DAYS for 90 Active Levothyroxine Sodium 200 MCG 1 tablet in the morning on an empty stomach Orally Once a day for 90 days Active Citalopram Hydrobromide 20 MG TAKE 1 TABLET BY MOUTH ONCE DAILY. for 90 Active Iodine Active Selenium 200 MCG 1 tablet Orally Once a day for 30 day(s) Active Ondansetron 4 MG 1 tablet on the tong ue and allow to dissolve Orally Once a day for 21 days 05/16/2023 Active Indapamide 2.5 MG 1 tablet in the morn ing Orally Once a day for 30 days Active metFORMIN HCl 1000 MG 1 tablet with a me al Orally Every 12 hours for 30 days Active Mirena Active Cetirizine HCl 10 MG TAKE 1 TABLET BY MO UT EVERY DAY FOR 30 DAYS for 30 Active Ramipril 5 MG 1 capsule Orally Onc e a day for 30 days 12/01/2024 Active Azelastine HCl 137 MCG/SPRAY 1 puff in each nostril Nasally Twice a day for 30 days Active Albuterol Sulfate HFA 108 (90 Base) MCG/ACT 2 puff as needed Inhalation every 6 hrs for 30 days Active Flovent HFA 110 MCG/ACT 2 puffs Inhalati on Twice a day Active Mounjaro 5 MG/0.5ML 0.5ml Subcutaneous weekly for 30 days 12/01/2024 03/31/2025 Active Indapamide 1.25 MG 1 tablet in the morn ing Orally Once a day for 30 days Active Vitamin D3 50 MCG (1999 UT) 2 tablet Orally Once a day for 30 days Active Immunizations Vaccine Route Administration Date Status Comme nts *Influenza-Quadrivalent IM Intramuscular 08/23/2023 Admini stered *Tdap Unknown 08/22/2022 Administered COVID Spikevax Moderna Unknown 08/15/2023 Administered COVID Spikevax Moderna Unknown 08/07/2024 Administered COVID-19 Moderna BiValent Booster Unknown 08/22/2022 Administered ZZIRI-45-Iwzcjj Vaccine Unknown 12/15/2020 Administered SIEAR-59-Ndreij Vaccine Unknown 08/17/2021 Administered HPV (human papillomavirus), quadrivalent, 3 dose schedule Unknown 01/22/2008 Administered Influenza (split), 3 yrs and above Unknown 08/07/2024 Administered Influenza Vaccine, Seasonal, Quadrivalent, Recombinant, Preservative Free Unknown 08/26/2020 Administered Influenza-Afluria (IIV4) Unknown 09/01/2021 Administere d Pneumococcal polysaccharide PPV23 Unknown 09/20/2014 Administered Td (adult), absorbed Unknown 03/03/2019 Administered Social History Alcohol Screen (Audit-C) Question Answer Notes Did you have a drink contain ing alcohol in the past year? Yes How often did you have a dri nk containing alcohol in the past year? 2 to 4 times a month (2 points) How many drinks did you have on a typical day when you were drinking in the past year? 1 or 2 drinks (0 point) How often did you have 6 or more drinks on one occasion in the past year? 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) Active confirmed Problem Autoimmune thyroiditis (24230438) Autoimmune thyroiditis (E06.3) Active confirmed Problem Hyperglycemia due to type 2 diabetes mellitus (487502034175778) Type 2 diabetes mellitus with hyperglycemia (E11.65) Active confirmed Problem Type II diabetes mellitus without complication (436224860) Type 2 diabetes mellitus without complications (E11.9) Active confirmed Problem Vitamin D deficiency (33734779) Vitamin D deficiency, unspecified (E55.9) Active confirmed Problem Morbid obesity (disorder) (221290955) Morbid (severe) obesity due to excess calories (E66.01) Active confirmed Problem Mild major depression, single episode (91287968) Major depressive disorder, single episode, mild (F32.0) Active confirmed Problem Attention deficit hyperactivity disorder, combined type (52923425) Attention-defici t hyperactivity disorder, combined type (F90.2) Active confirmed Problem Bilateral hearing loss (48929855) Other specified hearing loss, bilateral (H91.8X3) Active confirmed Problem Essential hypertension (45711720) Essential (primary) hypertension (I10) Active confirmed Problem Chronic kidney disease due to hypertension (957231618654860) Hypertensive chronic kidney disease with stage 1 through stage 4 chronic kidney disease, or unspecified chronic kidney disease (I12.9) Active confirmed Problem Hypertrophy of adenoids (930888694) Hypertrophy of adenoids (J35.2) Active confirmed Problem Mild intermittent asthma (346918641) Mild intermittent asthma, uncomplicated (J45.20) Active confirmed Problem Chronic kidney disease stage 1 (479288261) Chronic kidney disease, stage 1 (N18.1) Active confirmed Problem Attention and concentration deficit (R41.840) Active confirmed Problem Obstructive sleep apnea syndrome (disorder) (35157626) Obstructive sleep apnea (adult) (pediatric) (G47.33) Active confirmed Problem Body mass index 40+ - morbidly obese (627442417) Body mass index [BMI] 50.0-59.9, adult (Z68.43) Active confirmed Vital Signs Heart Rate 96 /min 12/01/2024 Temperature 97.7 degrees Fahrenheit 12/01/2024 Blood pressure diastolic 86 mm Hg 12/01/2024 Oximetry 98 % 12/01/2024 Height 63 in 12/01/2024 Blood pressure systolic 158 mm Hg 12/01/2024 Weight 305 lbs 12/01/2024 BMI 54.02 kg/m2 12/01/2024 Encounters Encounter Location Date Provider Diagnosis Bret Smith MD [address] [id number] 01/20/2024 Latrice Gillespie Encounter for genera l adult medical examination without abnormal findings Z00.00 ; Type 2 diabetes mellitus with hyperglycemia E11.65 ; Hypothyroidism, unspecified E03.9 ; Attention-deficit hyperactivity disorder, combined type F90.2 ; Body mass index [BMI] 50.0-59.9, adult Z68.43 ; Morbid (severe) obesity due to excess calories E66.01 ; Obstructive sleep apnea (adult) (pediatric) G47.33 ; Nasal congestion R09.81 ; Mild intermittent asthma, uncomplicated J45.20 ; Major depressive disorder, single episode, mild F32.0 ; Vitamin D deficiency, unspecified E55.9 ; Encounter for screening for cardiovascular disorders Z13.6 ; Encounter for immunization Z23 ; Encounter for antibody response examination Z01.84 ; Encounter for screening for other viral diseases Z11.59 ; Encounter for screening for malignant neoplasm of cervix Z12.4 and Encounter for screening examination for other mental health and behavioral disorders Z13.39 Bret Smith MD [address] [id number] 03/23/2024 Latrice Gillespie Type 2 diabetes mellitus with hyperglycemia E11.65 ; Hypothyroidism, unspecified E03.9 ; Attention-deficit hyperactivity disorder, combined type F90.2 ; Body mass index [BMI] 50.0-59.9, adult Z68.43 ; Morbid (severe) obesity due to excess calories E66.01 ; Obstructive sleep apnea (adult) (pediatric) G47.33 ; Nontoxic multinodular goiter E04.2 and Vitamin D deficiency, unspecified E55.9 Bret Smith MD [address] [id number] 06/10/2024 Latrice Gillespie Essential (primary) hypertension I10 and Acute serous otitis media, bilateral H65.03 Bret Smith MD [address] [id number] 06/24/2024 Latrice Gillespie Type 2 diabetes mellitus with hyperglycemia E11.65 ; Hypothyroidism, unspecified E03.9 ; Attention-deficit hyperactivity disorder, combined type F90.2 ; Body mass index [BMI] 50.0-59.9, adult Z68.43 ; Morbid (severe) obesity due to excess calories E66.01 ; Obstructive sleep apnea (adult) (pediatric) G47.33 ; Nontoxic multinodular goiter E04.2 ; Vitamin D deficiency, unspecified E55.9 ; Hypertensive chronic kidney disease with stage 1 through stage 4 chronic kidney disease, or unspecified chronic kidney disease I12.9 ; 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 and Chronic kidney disease, stage 1 N18.1 Bret Smith MD [address] [id number] 07/08/2024 Latrice Gillespie Hypertensive chronic kidney disease with stage 1 through stage 4 chronic kidney disease, or unspecified chronic kidney disease I12.9 ; Chronic kidney disease, stage 1 N18.1 and Obstructive sleep apnea (adult) (pediatric) G47.33 Bret Smith MD [address] [id number] 08/27/2024 Latrice Gillespie Type 2 diabetes mellitus with hyperglycemia E11.65 ; Hypertensive chronic kidney disease with stage 1 through stage 4 chronic kidney disease, or unspecified chronic kidney disease I12.9 ; Chronic kidney disease, stage 1 N18.1 ; Obstructive sleep apnea (adult) (pediatric) G47.33 and Nontoxic diffuse goiter E04.0 Bret Smith MD [address] [id number] 10/05/2024 Latrice Gillespie Type 2 diabetes mellitus with hyperglycemia E11.65 ; Hypertensive chronic kidney disease with stage 1 through stage 4 chronic kidney disease, or unspecified chronic kidney disease I12.9 ; Chronic kidney disease, stage 1 N18.1 ; Obstructive sleep apnea (adult) (pediatric) G47.33 ; Nontoxic diffuse goiter E04.0 and Acute upper respiratory infection, unspecified J06.9 Bret Smith MD [address] [id number] 12/01/2024 Latrice Shon Type 2 diabetes mellitus with hyperglycemia E11.65 ; Hypertensive chronic kidney disease with stage 1 through stage 4 chronic kidney disease, or unspecified chronic kidney disease I12.9 ; Chronic kidney disease, stage 1 N18.1 ; Obstructive sleep apnea (adult) (pediatric) G47.33 ; Nontoxic diffuse goiter E04.0 and Hypothyroidism, unspecified E03.9 Bret Smith MD [address] [id number] 02/12/2024 Latrice Smith MD [address] [id number] 03/08/2024 Latricecain Gillespie Hypothyroidism, unspecified E03.9 and Vitamin D deficiency, unspecified E55.9 Bret Smith MD [address] [id number] 03/28/2024 Latrice Smith MD [address] [id number] 04/30/2024 Latrice Smith MD [address] [id number] 06/16/2024 Latrice Smith MD [address] [id number] 06/29/2024 Latrice Smith MD [address] [id number] 09/09/2024 Latrice Smith MD [address] [id number] 09/30/2024 Latrice Smith MD [address] [id number] 09/30/2024 Latrice Smith MD [address] [id number] 10/06/2024 Latrice Smith MD [address] [id number] 12/01/2024 Latrice Smith MD [address] [id number] 12/25/2023 Latrice Gillespie Attention-deficit hyperactivity disorder, combined type F90.2 Bret Smith MD [address] [id number] 02/03/2024 Latrice Gillespie Attention-deficit hyperactivity disorder, combined type F90.2 Bret Smith MD [address] [id number] 02/05/2024 Latrice Gillespie Attention-deficit hyperactivity disorder, combined type F90.2 Bret Smith MD [address] [id number] 03/08/2024 Latrice Gillespie Bret Smith MD [address] [id number] 03/09/2024 Latrice Gillespie Bret Smith MD [address] [id number] 05/08/2024 Latrice Gillespie Bret Smith MD [address] [id number] 05/08/2024 Latrice Gillespie Attention-deficit hyperactivity disorder, combined type F90.2 and Other specified hearing loss, bilateral H91.8X3 Bret Smith MD [address] [id number] 05/28/2024 Latrice Gillespie Shortness of breath R06.02 Bret Smith MD [address] [id number] 06/30/2024 Latrice Gillespie Bret Smith MD [address] [id number] 07/08/2024 Latrice Gillespie Bret Smith MD [address] [id number] 07/08/2024 Latrice Gillespie Bret Smith MD [address] [id number] 07/14/2024 Latrice Gillespie Bret Smith MD [address] [id number] 07/31/2024 Latrice Gillespie Bret Smith MD [address] [id number] 09/14/2024 Latrice Gillespie Body mass index [BMI ] 50.0-59.9, adult Z68.43 Bret mSith MD [address] [id number] 09/14/2024 Latrice Gillespie Body mass index [BMI ] 50.0-59.9, adult Z68.43 Bret Smith MD [address] [id number] 09/30/2024 Latrice Smith MD [address] [id number] 10/01/2024 Latrice Smith MD [address] [id number] 07/17/2024 Latrice Smith MD [address] [id number] 10/07/2024 Latrice Smith MD [address] [id number] 08/28/2024 Latrice Smith MD [address] [id number] 11/06/2024 Bret Smith MD [address] [id number] 11/05/2024 Latrice Gillespie Assessments Encounter Date Diagnosis (ICD Code) Assessment Notes Treatment Notes Treatment Clinical Notes Section Notes 02/03/2024 Attention-deficit hyperactivity disorder, combined type (ICD-10 - F90.2) 03/08/2024 Hypothyroidism, unspecified (ICD-10 - E03.9) 03/08/2024 Vitamin D deficiency, unspecified (ICD-10 - E55.9) 05/08/2024 Attention-deficit hyperactivity disorder, combined type (ICD-10 - F90.2) 05/28/2024 Shortness of breath (ICD-10 - R06.02) 06/10/2024 Acute serous otitis media, bilateral (ICD-10 - H65.03) Discussed with patient her presenting symptoms as well as findings of bilateral AOM's. Patient to continue her course of prescribed antibiotics from the ER, and we will also prescribe patient azithromycin (pt has an allergy to Amoxicillin). Patient has a standing appointment scheduled for June 24, and we will reassess her ears at that time. Patient also aware that if symptoms do not improve with an additional antibiotic as well as encouraging patient to continue with Zyrtec daily, the patient follow-up sooner than her neck scheduled appointment 06/10/2024 Essential (primary) hypertension (ICD-10 - I10) Patient blood pressure elevated during today's visit, which is a new finding for her. Patient states she has been taking an iihv-klx-jmholhb decongestant since last week. Discussed that this may be the underlying cause for her elevated blood pressure and patient to avoid any erlg-sqt-vgytjhv decongestions as this may cause increase in her blood pressure. Patient is scheduled June 24 and we will reassess her blood pressure at that time. 06/24/2024 Hypothyroidism, unspecified (ICD-10 - E03.9) Most recent TSH level was WNL's. Patient to have updated thyroid labs completed today to ensure continued normal TSH levels 06/24/2024 Type 2 diabetes mellitus with hyperglycemia (ICD-10 - E11.65) In office A1c noted to be 6.8. Patient to continue using her Ozempic weekly and metformin daily to assist with managing her underlying diabetes. Patient to continue working with her weaving teacher as well and to follow-up in 2 months to reassess her A1c level 07/08/2024 Hypertensive chronic kidney disease with stage 1 through stage 4 chronic kidney disease, or unspecified chronic kidney disease (ICD-10 - I12.9) Discussed with patient her elevated blood pressure reading in office today. Patient has discontinued use of any cuop-cln-fcdvdxk decongestion medication for over 2 weeks. Discussed with patient that her elevated blood pressure reading does not seem to be consistent with use of any ybov-gwr-xlavudt medications given that she has not been on it for over 2 weeks. Given her persistent elevated blood pressure readings would like patient to begin ramipril to further manage her elevated BP. Patient agreeable to be seen in office in 4 to 6 weeks to reassess blood pressure after beginning ramipril 07/08/2024 Chronic kidney disease, stage 1 (ICD-10 - N18.1) GFR stable and greater than 100 10/05/2024 Type 2 diabetes mellitus with hyperglycemia (ICD-10 - E11.65) In office A1c noted to be 7.7, which is an increase since last visit. Patient states she is taking her Ozempic 2 mg weekly and has been increasing her physical activity and working on diet adjustments. Due to patient's rising A1c despite Ozempic use, we will discontinue Ozempic and begin Mounjaro to further assist in managing her underlying diabetes. Reviewed proper use of Mounjaro and provided a printout with dosing of Mounjaro and when patient would need to request a refill of the higher dose until we reach patient's max dose. Patient aware to follow-up should she have any negative side effects. If patient does well on Mounjaro, will plan for follow-up in 6 weeks to reassess A1c 12/01/2024 Type 2 diabetes mellitus with hyperglycemia (ICD-10 - E11.65) In office A1c noted to be 11.3, which is an increase of her last A1c of 7.7. Patient admits to not taking any injectable medication (Ozempic as previously prescribed or Mounjaro as recently prescribed) as she has not been able to obtain her Mounjaro since last visit. Reviewed with patient that it appears her insurance did approve her Mounjaro. Given patient's elevated A1c did provide patient with a Mounjaro 2.5 mg sample pack to begin immediately. Will prescribe Mounjaro 5 mg and dose for patient to begin after completing the sample pack. Patient to follow-up as scheduled in January to reassess A1c to determine if any additional medication changes are warranted for further management of her diabetes. Did discuss with patient that when she is consistent with her injectable medications then her A1c does respond well and her diabetes is well-managed. Encouraged patient to begin Mounjaro today, continue working with her weaving teacher, and adjusting her diet and increasing her exercise as tolerated to further improve her underlying type 2 diabetes 03/23/2024 Hypothyroidism, unspecified (ICD-10 - E03.9) Patient's recent TSH level was greater than 6 despite taking 200 mcg of levothyroxine daily. Patient states that she does take this medication daily and separates it from her other daily medications. Given her continued elevation in TSH despite current medication regimen, will obtain additional hormone labs to further evaluate for additional causes for her uncontrolled TSH level. 03/23/2024 Type 2 diabetes mellitus with hyperglycemia (ICD-10 - E11.65) In office A1c noted to be 6.9, which is an improvement as patient was greater than 8 at last visit. Patient to continue using her Ozempic weekly and metformin daily to assist with managing her underlying diabetes. Patient to continue working with her weaving teacher as well and to follow-up in 2 months to reassess her A1c level 01/20/2024 Type 2 diabetes mellitus with hyperglycemia (ICD-10 - E11.65) Previous A1c level was noted to be 10.2 and patient admits to being more consistent with her Ozempic as she has been able to receive her medication from the pharmacy and is taking 1mg Ozempic weekly without any negative side effects. Patient continues to take metformin but only once a day as when she went to twice a day she had much stomach upset. Patient to continue working on lifestyle and dietary modifications and to also continue working with her dietitian. She is agreeable to begin a CGM and a [email or web address] cas 3 sample applied today in office. Patient to follow-up in 6 weeks and will also obtain an updated A1c level to ensure improvement since patient has become more compliant with her Ozempic 01/20/2024 Encounter for general adult medical examination without abnormal findings (ICD-10 - Z00.00) General healthcare up-to-date. Will obtain routine labs.Plan will be for annual in 1 year 09/14/2024 Body mass index [BMI] 50.0-59.9, adult (ICD-10 - Z68.43) 09/14/2024 Body mass index [BMI] 50.0-59.9, adult (ICD-10 - Z68.43) 02/05/2024 Attention-deficit hyperactivity disorder, combined type (ICD-10 - F90.2) last filled: 12/27/2023 08/27/2024 Type 2 diabetes mellitus with hyperglycemia (ICD-10 - E11.65) In office A1c noted to be 6.9 and patient encouraged to continue working on diet and lifestyle modifications as well as continue with Ozempic weekly. 12/25/2023 Attention-deficit hyperactivity disorder, combined type (ICD-10 - F90.2) last filled, per [facility]: 11/25/2023Methylp henidate Er 27 Mg Tab30 08/27/2024 Hypertensive chronic kidney disease with stage 1 through stage 4 chronic kidney disease, or unspecified chronic kidney disease (ICD-10 - I12.9) Patient admits to not being consistent with ramipril as this medication has made her feel fatigued and she also has a dry cough. She is not sure if this cough was due to a previous viral illness or this new medication. Given these symptoms, will discontinue ramipril and will start indapamide to see if this can better manage her blood pressure and she may be more compliant if she does not have any negative side effects. Patient agreeable to make this medication switched with follow-up in 4 to 6 weeks to reassess blood pressure 03/23/2024 Attention-deficit hyperactivity disorder, combined type (ICD-10 - F90.2) Patient continues to take Concerta daily but feels as though she is still scattered and unfocused. She often states that she is late for meetings and events and due to this we will increase patient's Concerta dose to see if this can better manage her symptoms of concern [facility] 01/20/2024 Hypothyroidism, unspecified (ICD-10 - E03.9) Previous TSH level elevated and levothyroxine dose was adjusted. Patient to remain on current levothyroxine dose and will obtain an updated TSH level to ensure patient's adequately controlled on current levothyroxine dose 10/05/2024 Chronic kidney disease, stage 1 (ICD-10 - N18.1) GFR stable and greater than 100 12/01/2024 Hypertensive chronic kidney disease with stage 1 through stage 4 chronic kidney disease, or unspecified chronic kidney disease (ICD-10 - I12.9) Blood pressure remains elevated during today's visit. Would like patient to remain on indapamide and will add ramipril to her daily regimen to further improve her blood pressure. Patient to follow-up as scheduled in January to reassess blood pressure since adding indapamide to her regimen 10/05/2024 Hypertensive chronic kidney disease with stage 1 through stage 4 chronic kidney disease, or unspecified chronic kidney disease (ICD-10 - I12.9) Patient's blood pressure remains elevated during today's visit. Due to this we will increase patient's indapamide to 2.5 mg daily. Patient also have updated lab work completed including a urine microalbumin level. Patient agreeable to make this medication switched with follow-up in 4 to 6 weeks to reassess blood pressure 07/08/2024 Obstructive sleep apnea (adult) (pediatric) (ICD-10 - G47.33) Pt completed her in office sleep study and was noted to have severe sleep apnea (per patient). Patient recently started using a bipap machine and is working on getting a mask that fits better to ensure proper use of her bipap overnight. Patient aware that improvement in underlying sleep apnea can also improve her blood pressure and consistent use of her BiPAP machine would help in managing her comorbidities 06/24/2024 Attention-deficit hyperactivity disorder, combined type (ICD-10 - F90.2) Patient continues to take Concerta daily but feels as though her focus and concentration symptoms have improved overall. 05/08/2024 Other specified hearing loss, bilateral (ICD-10 - H91.8X3) 06/24/2024 Body mass index [BMI] 50.0-59.9, adult (ICD-10 - Z68.43) Patient to continue with lifestyle modifications and increasing her exercise routine to assist with weight loss 12/01/2024 Chronic kidney disease, stage 1 (ICD-10 - N18.1) GFR stable and greater than 100 10/05/2024 Obstructive sleep apnea (adult) (pediatric) (ICD-10 - G47.33) Patient was previously diagnosed with severe sleep apnea and was started on a BiPAP machine but admits to not being consistent given her inability to tolerate the mask. Patient to follow-up with sleep medicine services to discuss additional masks to ensure proper and consistent use of her BiPAP 03/23/2024 Body mass index [BMI] 50.0-59.9, adult (ICD-10 - Z68.43) Patient to continue with lifestyle modifications and increasing her exercise routine to assist with weight loss 01/20/2024 Attention-deficit hyperactivity disorder, combined type (ICD-10 - F90.2) Stable and patient to remain on current Concerta dose as she feels this has greatly improved her ability to focus and concentrate. 08/27/2024 Chronic kidney disease, stage 1 (ICD-10 - N18.1) GFR stable and greater than 100 08/27/2024 Obstructive sleep apnea (adult) (pediatric) (ICD-10 - G47.33) Patient previously completed her in office sleep study which did reveal severe sleep apnea. Patient was recently started on a BiPAP but is not as consistent with the use as she is not able to tolerate the mask. Patient aware that improvement in underlying sleep apnea can also help improve her blood pressure and encouraged patient to reach out to the sleep center to discuss additional masks to ensure proper and consistent use of her BiPAP 01/20/2024 Body mass index [BMI] 50.0-59.9, adult (ICD-10 - Z68.43) Patient to continue with lifestyle modifications and increasing her exercise routine to assist with weight loss 03/23/2024 Morbid (severe) obesity due to excess calories (ICD-10 - E66.01) Pt continues to work with [employer] and working on diet and lifestyle modificaitons 12/01/2024 Obstructive sleep apnea (adult) (pediatric) (ICD-10 - G47.33) Patient with newly diagnosed sleep apnea and continues to try to use her BiPAP machine. She states she has not been able to tolerate the mask but is trying to use this for a few hours each night to assist with her sleep apnea. Patient to follow-up with sleep medicine services to discuss additional masks or equipment to ensure proper use of her BiPAP 10/05/2024 Nontoxic diffuse goiter (ICD-10 - E04.0) Patient feels overly frustrated as she was recently evaluated by Dr. Gerard, endocrine surgeon, given concerns of tracheal involvement due to large goiter. Patient is requesting her thyroid be removed and specialist was not willing to remove her thyroid at this time. Patient was recently referred to [facility] thyroid clinic but does not have an appointment until February. Encouraged patient to contact the endocrinology office at [facility] weekly to see if there are any cancellations for her to be seen sooner 06/24/2024 Morbid (severe) obesity due to excess calories (ICD-10 - E66.01) Pt continues to work with [employer] and working on diet and lifestyle modificaitons 06/24/2024 Obstructive sleep apnea (adult) (pediatric) (ICD-10 - G47.33) Patient recenlty completed both an in office and home sleep study which revealed sleep apnea. Pt has an apt Saturday to learn proper use of her CPAP machine. 10/05/2024 Acute upper respiratory infection, unspecified (ICD-10 - J06.9) Given patient's recent sick symptoms we will obtain a respiratory panel to ensure there is no underlying viral illness. Patient to continue using her nasal spray as well as Zyrtec to assist with nasal congestion and postnasal drip. 12/01/2024 Nontoxic diffuse goiter (ICD-10 - E04.0) Patient with previous CT scan results that confirmed tracheal involvement due to large goiter. She is pending an appointment with [facility] thyroid clinic in February for further evaluation and to determine if removal of her thyroid is warranted given the large goiter as well as multiple thyroid nodules, although FNA or nodules were without significant findings 03/23/2024 Obstructive sleep apnea (adult) (pediatric) (ICD-10 - G47.33) Patient states she recently completed an in office sleep study given frequent apneic episodes with her home sleep study results. Encouraged patient to reach out to Dr. Keith's office to review results of sleep study. Also discussed with patient her sleep disturbances, daytime fatigue, and findings of thyroid enlargement and goiter and would like patient to undergo a CT scan of her neck to ensure there is not any significant findings that would cause tracheal compression given her increased goiter and underlying thyroid disease. Patient agreeable to complete this CT scan and follow-up with specialist as scheduled as well 01/20/2024 Morbid (severe) obesity due to excess calories (ICD-10 - E66.01) Pt continues to work with [employer] and working on diet and lifestyle modificaitons 08/27/2024 Nontoxic diffuse goiter (ICD-10 - E04.0) Patient feels overly frustrated as she was recently evaluated by Dr. Gerard, endocrine surgeon, given concerns of tracheal involvement due to large goiter. Patient is requesting her thyroid be removed and specialist was not willing to remove her thyroid at this time. Encouraged patient to reach out to her insurance carrier to see what additional endocrine surgeons are in network and we can place a referral for second opinion 12/01/2024 Hypothyroidism, unspecified (ICD-10 - E03.9) Most recent TSH level was within normal limits and patient to remain on current medication regimen 03/23/2024 Nontoxic multinodular goiter (ICD-10 - E04.2) Patient with previous ultrasound findings of multiple thyroid nodules and normal FNA results. Patient with continued thyroid enlargement and goiter on exam. Will move forward with a CT scan of neck given patient's concerns of difficulty breathing, shortness of breath, and significant sleep apnea which she continues to work with Dr. Keith's office to determine next best steps in manging her sleep study findings 01/20/2024 Obstructive sleep apnea (adult) (pediatric) (ICD-10 - G47.33) Patient recently completed a home sleep study, and she states that she needs to repeat her sleep study in office given frequent apneic episodes. Encouraged patient to reach out again to Dr. Keith's office to schedule this in office home study as patient would greatly benefit from beginning use of his CPAP machine. She is also seeing ENT for further evaluation due to nasal congestion and sleep disturbances. 06/24/2024 Nontoxic multinodular goiter (ICD-10 - E04.2) Patient with previous ultrasound findings of multiple thyroid nodules and normal FNA results. Patient with continued thyroid enlargement and goiter on exam. Pt's recent CT scan revealed mild bilateral enlargement of the thyroid lobes encroaching to the midline with mild tracheal narrowing. There were also findings of enlarged bilateral adenoids. Patient would benefit from a follow-up with Dr. Gerard given these CT Scan findings and pt's diagnosis of sleep apnea, shortness of breath, and swallowing difficulty. Pt may benefit from surgical intervention and removal of her thyroid gland 06/24/2024 Vitamin D deficiency, unspecified (ICD-10 - E55.9) Will obtain an update vitamin D level to ensure improvement since pt is more consistent with her supplements 01/20/2024 Nasal congestion (ICD-10 - R09.81) Patient was recently evaluated by ENT and completed a CT scan of her sinuses due to consistent sinus congestion. Patient states she is seeing ENT to review CT scan and to further evaluate her adenoids and tonsils given her persistent congestion and sleep disturbances 03/23/2024 Vitamin D deficiency, unspecified (ICD-10 - E55.9) Refill of vitamin D sent in per patient's request 01/20/2024 Mild intermittent asthma, uncomplicated (ICD-10 - J45.20) Stable and patient to use her albuterol rescue inhaler as needed for any breakthrough asthma symptoms 06/24/2024 Hypertensive chronic kidney disease with stage 1 through stage 4 chronic kidney disease, or unspecified chronic kidney disease (ICD-10 - I12.9) Patient with a new finding of elevated blood pressure readings in office today. Plan will be to obtain lab work including a microalbumin level. Patient did recently discontinue use of a decongestant which could be an underlying cause for her elevated blood pressure reqadings. She is also taking Concerta but would not suspect that this would cause that elevation in her blood pressure readings. Patient to follow-up in 2 weeks to reassess blood pressure and determine if medications are warranted 06/24/2024 Hypertrophy of adenoids (ICD-10 - J35.2) Recent CT scan results reviewed which revealed bilateral enlarged adenoids. Patient was previously seen by ENT, and she states she was told her sinuses were without findings and no mention of her adenoids. Encouraged patient to reach out to ENT given findings of enlarged bilateral adenoids and discuss a plan moving forward with this finding 01/20/2024 Major depressive disorder, single episode, mild (ICD-10 - F32.0) Stable and patient to remain on citalopram to assist with her underlying depressive symptoms 01/20/2024 Vitamin D deficiency, unspecified (ICD-10 - E55.9) Will check level to verify that there is no deficiency 06/24/2024 Chronic kidney disease, stage 1 (ICD-10 - N18.1) Previous GFR noted to be over 100 01/20/2024 Encounter for screening for cardiovascular disorders (ICD-10 - Z13.6) Blood pressure stable. Will check for comorbidity of hyperlipidemia and hyperglycemia to further assess risk 01/20/2024 Encounter for immunization (ICD-10 - Z23) Vaccines up-to-date 01/20/2024 Encounter for antibody response examination (ICD-10 - Z01.84) Titers have been checked in the past and there is immunity to rubeola 01/20/2024 Encounter for screening for other viral diseases (ICD-10 - Z11.59) Will screen for hepatitis C as per general recommendation 01/20/2024 Encounter for screening for malignant neoplasm of cervix (ICD-10 - Z12.4) Patient states she completed an updated Pap this year through [facility]. Will obtain these results for our records 01/20/2024 Encounter for screening examination for other mental health and behavioral disorders (ICD-10 - Z13.39) PHQ score reviewed and no further interventions warranted at this time. Patient to remain on current medication regimen and to follow-up should she have any new or concerning symptoms 01/20/2024 Other 06/30/2024 Other last filled: 05/13/2024 Plan Of Treatment Pending Test Test Name Order Date COMPREHENSIVE METABOLIC PANEL 02/25/2023 TSH WITH REFLEX TO FT4 01/14/2023 TSH WITH REFLEX TO FT4 02/22/2023 Ultrasound: Needle Biopsy Thyroid-Rad COVID and INFLUENZA Rapid Assay 03/18/20 TSH reflex to [id number] 03/08/2024 Next Appt Details Provider Name:Latrice Gillespie , 01/21/2025 01:00:00 PM, [address] [facility], [address], [place], [place], [phone], Insurance Providers Payer Name Payer Address Payer Phone Subscriber Number Group Number Insured Name Patient Relationship to Insured Coverage Start Date Coverage End Date Multiplan diversified administration [address] [place] [phone] [id number] Nury Olivera Self - patient is the insured Medical (General) History Medical History History ICD Code hearing loss Hypothyroidism Type 2 DM Depression Asthma Surgical History Surgery Date(Month/Year) Gallbladder removal Hospitalization History Reason Date(Month/Year) Gallbladder removal
[2024-12-18 15:05] LABS: HPV Genotype 16 Negative (Negative); HPV Genotype 18 Negative (Negative); HPV High Risk Negative (Negative)
== END 2024-12-08 08:22 | disposition home or self-care (01) ==
LOC: HO.LNP 08:21
PROVIDERS: PCP Nurse Practitioner Family; Visit Provider Advanced Practice Midwife
DX: Z01.419 Encounter for gynecological examination (general) (routine) without abnormal findings (principal)
CPT/HCPCS: 87626; 88175

== ENCOUNTER 2025-03-15 09:11 | Outpatient (REF) | payer SELFPAY ==
--- OUTSIDE RECORDS SUMMARY | 2025-03-15 09:53 | XMS_ITS | Patient Health Record ---
Author Organization [facility], [facility] Address [address] [place] [phone] Support Name Relationship Address Phone EARNEST FARLEY Guarantor Unknown Unavailable REASON FOR REFERRAL No Information PLAN OF TREATMENT No Information Insurance Providers Payer Name Payer Address Payer Phone Subscriber Number Group Number Insured Name Patient Relationship to Insured Coverage Start Date Coverage End Date HNE MEDICARE 1 TREY [facility] [address] [place] [phone] [id number] EARNEST FARLEY Self - patient is the insured 1
--- OUTSIDE RECORDS SUMMARY | 2025-03-15 09:54 | XMS_ITS | Clinical Summary ---
Author Organization [facility] Address [address] [place] [id number] Care Team Providers Care Pc Maintenance Technician Name Role Phone Traci Menendez Primary Care Provider Allergies Active Allergy Reactions Criticality Noted Date Comments Amoxicillin Hives,Itching,Nausea And Vomiting,Rash 01/23/2006 Medications albuterol (PROAIR HFA,VENTOLIN HFA) 90 mcg inhaler every 6 (six) hours. Active azelastine (ASTELIN) 137 mcg (0.1 %) nasal spray every 12 (twelve) hours. Active calcium carbonate-vitam in D3 (Calcium 600 + D,3,) 600 mg-5 mcg (200 unit) per tablet Active cetirizine (ZyrTEC) 10 mg tablet TAKE 1 TABLET BY MOUTH EVERY DAY FOR 30 DAYS for 30 Active cholecalciferol (VITAMIN D3) 2,000 unit tablet 2 tablets every 24 hours. Active citalopram (CeleXA) 20 mg tablet 5 Active FLUoxetine (PROzac) 10 mg capsule 1 capsule every 24 hours. 5 Active indapamide (LOZOL) 1.25 mg tablet SMARTSI Tablet(s) By Mouth Every Morning 4 Active levothyroxine (SYNTHROID, LEVOTHROID) 200 mcg tablet every 24 hours. Act mary carmen levothyroxine (SYNTHROID, LEVOTHROID) 25 mcg tablet TAKE 1 TABLET BY MOUTH EVERY DAY ON EMPTY STOMACH ON SATURDAY/SATURDAY /SATURDAY FOR 30 DAYS for 90 5 Active metFORMIN (GLUCOPHAGE) 1,000 mg tablet every 12 (twelve) hours. Active methylphenidate ER 36 mg tablet 04/01/202 5 Active ramipriL (ALTACE) 10 mg capsule TAKE 1 CAPSULE BY MOUTH EVERY DAY FOR 30 DAYS for 90 Active Mounjaro 7.5 mg/0.5 mL pen injector 0.5ml Subcutaneous weekly for 30 days Active levonorgestrel (MIRENA INTRAUTERI) Mirena Active selenium 200 mcg capsule 1 tablet every 24 hours. 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 15% hearing each ear; Speech therapy as a child. Baseline nasal speech Encounters Date Type Department Care Team Description 03/02/2025 myChart Message [facility] [address] [place] [address] Tile Finisher: Shari Brunson MD Results 02/26/2025 9:30 AM EDT - 02/26/2025 11:59 PM EDT Hospital Encounter [facility] Ultrasound [address] [place] [address] Shari Carmona MD Thyroid nodule Discharge Disposition: Home or Self Care () 02/26/2025 Results Follow-Up [facility] [address] [place] [address] Tile Finisher: Shari Brunson MD 02/18/2025 10:00 AM EDT Office Visit [facility] [address] [place] [address] Tile Finisher: Shari Brunson MD Multinodular goiter (Primary Dx); Thyroid nodule; Joesph's disease 02/18/2025 myChart Message [facility] [address] [place] [address] Tile Finisher: Shari Brunson MD Forgot to mention 02/18/2025 myChart Message [facility] [address] [place] [address] Tile Finisher: Shari Brunson MD thyroid test 02/18/2025 Telephone [facility] [address] [place] [address] Tile Finisher: Shari Brunson MD from Last 3 Months Social History Tobacco Use Types Packs/Day Years Used Date Smoking Tobacco: Never Smokeless Tobacco: Never Tobacco Cessation:Counseling Given: Not Answered Alcohol Use Standard Drinks/Week Comments Not Currently 0 (1 standard drink = 0.6 oz pur e alcohol) Comments Unknown Sex and Gender Information Value Date Recorded Sex Assigned at Female 09/18/2024 6:04 PM EST Legal Sex Female 4:24 PM EST Gender Identity Female 09/18/2024 6:04 PM EST Sexual Orientation Straight 09/18/2024 6: 04 PM EST Last Filed Vital Signs Vital Sign Reading Time Taken Comments Blood Pressure 129/75 02/18/2025 10:00 AM EDT Pulse 101 02/18/2025 10:00 AM EDT Temperature - - Respiratory Rate - - Oxygen Saturation - - Inhaled Oxygen Concentration - - Weight 140 kg (308 lb 10.3 oz) 02/18/2025 10:00 AM EDT Height 160 cm (5' 3 ) 02/18/2025 10:00 AM EDT Body Mass Index 54.67 02/18/2025 10:00 AM EDT Plan of Treatment Upcoming Encounters Date Type Department Care Team (Late st Contact Info) Description 09/01/2025 1:40 PM EDT Follow-Up [facility] [address] [place] [address] Tile Finisher: Shari Brunson MD [address] [place] [address] Health Maintenance Due Date Last Done Comments Basic Metabolic Panel 1984 Cervical Cancer Screening 1984 HIV Screening 1984 HPV and Pap Smear 1984 Hemoglobin A1C 1984 Hepatitis C Screening 1984 Pap Smear 1984 Ophthalmology Exam 02/23/1994 Urine Microalbumin 02/23/1994 Varicella Vaccines (1 of 2 - 13+ 2-dose series) 02/23/1997 Mammogram 2024 Alcohol/Substance Use Screening 11/11/2024 Depression Screening and Follow-Up 11/11/2024 Social Drivers of Health Hue ual Screening 11/11/2024 DTaP,Tdap,and Td Vaccines (4 - Td or Tdap) 08/22/2032 08/22/2022, 03/03/2019, 04/28/2008 RSV Vaccine (60+ years old a nd patients) (1 - 1-dose 75+ series) 02/23/2059 Hepatitis B Vaccines Completed 07/27/2009, 02/23/2009, 01/25/2009 COVID-19 Vaccine Completed 08/07/2024, 03/2023, 08/22/2022, Additional history exists Influenza Vaccine Completed 08/07/2024, , 08/20/2022, Additional history exists Pneumococcal Vaccine: Pediat lloyd (0-5 Years) and At-Risk Patients (6-50 Years) Completed 01/21/2025, 09/20/2014 Procedures * Due to [place] state law, this organization might not be sharing negative HIV tests. Procedure Name Priority Date/Time Associated Diagnosis Comments US HEAD NECK SOFT TISSUE Routine 02/26/2025 9:52 AM EDT Thyroid nodule TSH REFLEX FREE T4 Routine 02/18/2025 10 :47 AM EDT Thyroid nodule from Last 3 Months Results * Due to [place] state law, this organization might not be sharing negative HIV tests. * US Head And/Or Neck Soft Tissue (02/26/2025 9:52 AM EDT) Anatomical Region Laterality Modality Head and Neck N/A Ultrasound 02/26/2025 10:0 3 AM EDT Impressions 02/26/2025 11:14 AM EDT Heterogeneous thyroid gland parenchyma, which may be due to patient's known history of Joesph's thyroiditis. No discrete nodule. IVincenzo D.O., have reviewed the examination and concur with the findings as reported or so edited. Trainee: ??Wade Leggett If this radiology report contains a blank impression section, it is an incomplete radiology report. ??Please contact the interpreting radiologist or applicable radiology division as soon as possible to obtain the completed interpretation. ? Workstation ID: [id number] Narrative 02/26/2025 11:14 AM EDT EXAMINATION: ULTRASOUND SOFT TISSUE NECK AND THYROID. INDICATION: Thyroid nodule. Joesph's thyroiditis. Nontoxic single thyroid nodule. TECHNIQUE: Ultrasound of the soft tissues of the neck and thyroid. Multiple grayscale and color Doppler images were obtained. COMPARISON: Ultrasound thyroid 02/18/2025, 03/04/2023. FINDINGS: Evaluation is limited due to patient body habitus. The thyroid gland demonstrates heterogenous parenchymal echotexture. No hypervascularity on color Doppler. The thyroid isthmus measures 0.6 cm. The right lobe measures 5.2 x 1.7 x 1.9 cm (volume 7.8 mL). The left lobe measures 4.9 x 2.0 x 2.1 cm (volume 10 mL). No discrete nodules are identified. No cervical lymphadenopathy. Resulting Agency Comment [id number] Procedure Note Vincenzo Wan, DO - 02/26/2025 EXAMINATION: ULTRASOUND SOFT TISSUE NECK AND THYROID. INDICATION: Thyroid nodule. Joesph's thyroiditis. Nontoxic singlethyroid nodule. TECHNIQUE: Ultrasound of the soft tissues of the neck and thyroid.Multiple grayscale and color Doppler images were obtained. COMPARISON: Ultrasound thyroid 02/18/2025, 03/04/2023. FINDINGS: Evaluation is limited due to patient body habitus. The thyroid gland demonstrates heterogenous parenchymal echotexture. Nohypervascularity on color Doppler. The thyroid isthmus measures 0.6 cm. The right lobe measures 5.2 x 1.7 x 1.9 cm (volume 7.8 mL). The left lobe measures 4.9 x 2.0 x 2.1 cm (volume 10 mL). No discrete nodules are identified. No cervical lymphadenopathy. IMPRESSION: Heterogeneous thyroid gland parenchyma, which may be due to patient'sknown history of Joesph's thyroiditis. No discrete nodule. IVincenzo D.O., have reviewed the examination and concur with thefindings as reported or so edited. Trainee: Wade Leggett If this radiology report contains a blank impression section, it is anincomplete radiology report. Please contact the interpreting radiologistor applicable radiology division as soon as possible to obtain thecompleted interpretation. Workstation ID: [id number] Shari Carmona MD IMG US PROCEDURES Final Result * TSH Reflex Free T4 (02/18/2025 10:47 AM EDT) TSH 0.770 0.280 - 3.890 uIU/mL 02/18/2025 11:52 AM EDT [facility] Comment: Females: 1st trimester ? 0.150-4.000 ??IU/mL 2nd trimester ?? 0.310-4.170 ?IU/mL 3rd trimester ?0.380-4.150 ?IU/mL Blood Structure of peripheral vein / Unknown Venipuncture / Unknown 02/18/2025 10:47 AM EDT 02/18/2025 11:03 AM EDT Shari Carmona MD LAB BLOOD ORDERABLES Final Resu lt [facility] [address] [place] [address], [place] from Last 3 Months Insurance GENERIC MD PATRI[place] [id number] Care Teams Pc Maintenance Technician Relationship Specialty Start Date End Date Traci Menendez [address] [place] [address] PCP - General 09/17/24
--- OUTSIDE RECORDS SUMMARY | 2025-03-15 09:54 | XMS_ITS | Referral Summary ---
Author Organization [facility] Address [address] [place] [address] Care Team Providers Care Head Cleaning Porter Name Role Phone Traci Menendez Primary Care Provider [phone] Encounters Date Type Department Care Team Description 03/02/2025 [employer] Message [facility] [address] [place] [phone] Residential Specialist: Shari Brunson MD Results 02/26/2025 Results Follow-Up [facility] [address] [place] [address] Residential Specialist: Shari Brunson MD 02/26/2025 9:30 AM EDT - 02/26/2025 11:59 PM EDT Hospital Encounter [facility] Ultrasound [address] [place] [address] Shari Carmona MD Thyroid nodule Discharge Disposition: Home or Self Care (01) 02/18/2025 [employer] Message [facility] [address] [place] [address] Residential Specialist: Shari Brunson MD Forgot to mention 02/18/2025 [employer] Message [facility] [address] [place] [address] Residential Specialist: Shari Brunson MD thyroid test 02/18/2025 Telephone [facility] [address] [place] [address] Residential Specialist: Shari Brunson MD 02/18/2025 10:00 AM EDT Office Visit [facility] [address] [place] [address] Residential Specialist: Shari Brunson MD Multinodular goiter (Primary Dx); Thyroid nodule; Joesph's disease from Last 3 Months Allergies Active Allergy Reactions Criticality Noted Date [...] hours. Active methylphenidate ER 36 mg tablet 5 Active ramipriL (ALTACE) 10 mg capsule TAKE 1 CAPSULE BY MOUTH EVERY DAY FOR 30 DAYS for 90 Active Mounjaro 7.5 mg/0.5 mL pen injector 0.5ml Subcutaneous weekly for 30 days Active levonorgestrel (MIRENA INTRAUTERI) Mirena Active selenium 200 mcg capsule 1 tablet every 24 hours. Active B complex 87-lcdug-W-biot -zinc [phone] xy-bm-vab-mg tablet Active Active Problems Problem Noted Date [...] therapy as a child. Baseline nasal speech Social History Tobacco Use Types Packs/Day Years [...] Info) Description 09/01/2025 1:40 PM EDT Follow-Up [facility] [address] [place] [address] Residential Specialist: Shari Brunson MD [address] [place] [phone] Procedures * Due to [place] [employer] law, this organization might not be sharing negative HIV tests. Procedure Name Priority Date/Time Associated Diagnosis Comments US HEAD NECK SOFT TISSUE Routine 02/26/2025 9:52 AM EDT Thyroid nodule TSH REFLEX FREE T4 Routine 02/18/2025 10 :47 AM EDT Thyroid nodule from Last 3 Months Results * Due to [place] [employer] law, this organization might not be sharing [...] obtain the completed interpretation. ? Workstation ID: [id number] Narrative 02/26/2025 11:14 AM EDT EXAMINATION: ULTRASOUND [...] identified. No cervical lymphadenopathy. Resulting Agency Comment [id number] Procedure Note Vincenzo Wan, DO - 02/26/2025 [...] possible to obtain thecompleted interpretation. Workstation ID: [id number] Shari Carmona MD IMG US PROCEDURES Final Result * TSH Reflex Free T4 (02/18/2025 10:47 AM EDT) TSH 0.770 0.280 - 3.890 uIU/mL 02/18/2025 11:52 AM EDT [facility] Comment: Females: 1st trimester ? 0.150-4.000 ??IU/mL 2nd trimester ?? 0.310-4.170 ?IU/mL 3rd trimester ?0.380-4.150 ?IU/mL Blood Structure of peripheral vein / Unknown Venipuncture / Unknown 02/18/2025 10:47 AM EDT 02/18/2025 11:03 AM EDT us Shari Carmona MD LAB BLOOD ORDERABLES Final Resu lt [facility] [address] [place] [address], from Last 3 Months Insurance GENERIC MD [place] [id number] Care Teams Head Cleaning Porter Relationship Specialty Start Date End Date Traci Menendez [address] [place] [address] PCP - General 09/17/24
--- OUTSIDE RECORDS SUMMARY | 2025-03-15 09:54 | XMS_ITS | Encounter Summary ---
Author Organization [facility] Address [address] [place] [address] Care Team Providers Care Boilermaker Fitter Name Role Phone Traci Menendez Primary Care Provider [phone] Encounter Details Date Type Department Care Team (Late Contact Info) Description 02/18/2025 myChart Message [facility] [address] [place] [address] [phone] Adapted Physical Education Teacher: Shari Brunson MD [address] [place] [phone] Forgot to mention Social History Tobacco Use Types Packs/Day Years Used Date Smoking Tobacco: Never Smokeless Tobacco: Never Alcohol Use Standard Drinks/Week Comments Not Currently 0 (1 standard drink = 0.6 oz pur e alcohol) Comments Unknown Sex and Gender Information Value Date Recorded Sex Assigned at Female 09/18/2024 6:04 PM EST Legal Sex Female 4:24 PM EST Gender Identity Female 09/18/2024 6:04 PM EST Sexual Orientation Straight 09/18/2024 6: 04 PM EST documented as of this encounter Plan of Treatment Upcoming Encounters Date Type Department Care Team (Late st Contact Info) Description 09/01/2025 1:40 PM EDT Follow-Up [facility] [address] [place] [address] [phone] Adapted Physical Education Teacher: Shari Brunson MD [address] [place] [address] [phone] documented as of this encounter Visit Diagnoses Not on filedocumented in this encounter Care Teams Boilermaker Fitter Relationship Specialty Start Date End Date Traci Menendez [address] [place] [address] PCP - General 09/17/24 documented as of this encounter
--- OUTSIDE RECORDS SUMMARY | 2025-03-15 09:54 | XMS_ITS | Encounter Summary ---
Author Organization [facility] Address [address] [place] [address] Care Team Providers Care Pipefitter Welder Name Role Phone Traci Menendez Primary Care Provider Encounter Details Date Type Department Care Team (Late Contact Info) Description 03/02/2025 myChart Message [facility] [address] [place] [address] [phone] Inspection Clerk: Shari Brunson MD [address] [place] [phone] Results Social History Tobacco Use Types Packs/Day Years [...] Info) Description 09/01/2025 1:40 PM EDT Follow-Up [facility] [address] [place] [address] [phone] Inspection Clerk: Shari Brunson MD [address] [place] [phone] documented as of this encounter Visit Diagnoses Not on filedocumented in this encounter Care Teams Pipefitter Welder Relationship Specialty Start Date End Date Traci Menendez [address] [place] [address] PCP - General 09/17/24 documented as of this encounter
--- OUTSIDE RECORDS SUMMARY | 2025-03-15 09:54 | XMS_ITS ---
Author Organization [facility] Address [address] [place] [address] [phone] Care Team Providers Care Short Order Cook Name Role Phone Shon Traci Primary Care Provider [phone] BRET SMITH MD Unavailable Unavailable REASON FOR VISIT RE:ultrasound at [facility] Encounters Encounter Location Date Provider Diagnosis [facility] [address] [place] TE [address] [place] [address] [phone] 03/04/2025 Traci Menendez Plan Of Treatment Next Appt Details Provider Name:Traci Menendez , 04/21/2025 11:30:00 AM, [address] [place] [address], [phone], Provider Name:Traci Menendez , 01/27/2026 10:30:00 AM, [address] [place] [address], [phone], Progress Notes * Leyla FARLEYOB:1985 (40 yo F)Acc No.[id number]:03/04/2025 Patient:?MIGUELITO Nury :1985???Age:40 Y???Sex:Female Address:[address] [place] [id number] * true * Date:? Generated for Printi ng/Fadennysg/eTransmitting on:?03/15/2025 09:53 AM EDT
--- OUTSIDE RECORDS SUMMARY | 2025-03-15 09:54 | XMS_ITS | Encounter Summary ---
Author Organization [facility] Address [address] [place] [address] Care Team Providers Care Firmware Software Verification Engineer Name Role Phone Traci Menendez Primary Care Provider [phone] Encounter Details Date Type Department Care Team (Late Contact Info) Description 02/18/2025 myChart Message [facility] [address] [place] [address] [phone] Shipyard Painter Apprentice: Shari Brunson MD [address] [place] [phone] thyroid test Social History Tobacco Use Types Packs/Day Years [...] Info) Description 09/01/2025 1:40 PM EDT Follow-Up [facility] [address] [place] [address] [phone] Shipyard Painter Apprentice: Shari Brunson MD [address] [place] [phone] documented as of this encounter Visit Diagnoses Not on filedocumented in this encounter Care Teams Firmware Software Verification Engineer Relationship Specialty Start Date End Date Traci Menendez [address] [place] [address] PCP - General 09/17/24 documented as of this encounter
== END 2025-03-15 09:12 | disposition home or self-care (01) ==
LOC: HO.MAMMO 09:11
PROVIDERS: PCP Internal Medicine; Visit Provider Advanced Practice Midwife
DX: Z12.31 Encounter for screening mammogram for malignant neoplasm of breast (principal)
CPT/HCPCS: 77063; 77067

== ENCOUNTER → 2025-03-15 09:15 | Outpatient (BNV) | payer SELFPAY | PROVIDERS: PCP Internal Medicine; Visit Provider Internal Medicine | DX: Z12.31 Encounter for screening mammogram for malignant neoplasm of breast (principal) | CPT/HCPCS: 77063; 77067 ==